=== PATIENT | female | born 1960 | race Two or more races ===

== ENCOUNTER 2023-06-02 13:09 | Inpatient (IN) | payer BC, SELFPAY ==
[2023-06-02] VITALS (22 sets, daily range): BP systolic 72–106; BP diastolic 49–84; PULSE 72–100; RESP 14–20; TEMP 36.4–36.6; O2SAT 98–100; BMI 20.7
--- NOTE | 2023-06-02 | ECHO_ITS ---
Patient Info Name: Jenn Ross Age: 62 years : 1960 Gender: Female Ht: 64 in Wt: 115 lbs BSA: 1.53 m2 HR: 93 bpm BP: 106 / 84 mmHg Heart Rhythm: Sinus Rhythm Technical Quality: Fair Exam Date: 06/02/2023 3:28 PM Exam Location: Echo Lab Patient Status: Inpatient Admit Date: 06/02/2023 Staff Ordering Physician: Chava Saab MD (cherelle/jeromy) Farm Reporter: Jenny Chahal RDCS Attending Provider: Chava Saab MD (cherelle/jeromy) Referring Physician: Kaiser LUNA; Exam Type: CA echo dop color flow w con Study Info Indications - STEMI Complete two-dimensional, color flow and Doppler transthoracic echocardiogram is performed with contrast to opacify the left ventricle and to improve the deliniation of the left ventricle endocardial borders. Contrast/Agitated Saline Contrast/Ag. Saline: Definity Amount: 2.00 ml Administered By: Jenny Chahal RDCS Existing IV Access: Yes IV Access Condition: patent with no signs of infiltration Summary 1. Left ventricular chamber dimension is normal. 2. There is mildly increased left ventricular wall thickness. 3. Left ventricular systolic function is normal, estimated at 55-60%. 4. The mid and basal inferolateral and inferior gardner are hypokinetic. 5. The left ventricular diastolic function is grade I diastolic dysfunction. 6. Right ventricular systolic function is normal. 7. There is trace mitral valve regurgitation. 8. There is trace tricuspid valve regurgitation. Left Ventricle The mid and basal inferolateral and inferior gardner are hypokinetic. Left ventricular chamber dimension is normal. Left ventricular systolic function is normal, estimated at 55-60%. There is mildly increased left ventricular wall thickness. The left ventricular diastolic function is grade I diastolic dysfunction. Right Ventricle Right ventricular chamber dimension is normal. Right ventricular systolic function is normal. Left Atria Left atrial chamber dimension is normal. Right Atria Right atrial chamber dimension is normal. Atrial Septum Intact interatrial septum visualized by color flow imaging. Aortic Valve There is no aortic valve stenosis. There is no aortic valve regurgitation. There is mild aortic valve calcification. Pulmonic Valve The pulmonic valve is not well visualized. Mitral Valve There is trace mitral valve regurgitation. Tricuspid Valve There is trace tricuspid valve regurgitation. Pericardium/Pleural There is no pericardial effusion. Inferior Vena Cava Dilated inferior vena cava with <50% collapse upon inspiration consistent with elevated right atrial pressure, 8 mmHg. Aorta The aortic root size at the sinus of Valsalva is normal. Left Ventricular Outflow Tract Name Value Normal LVOT 2D LVOT Diameter 1.86 cm LVOT Doppler LVOT Peak Gradient 2 mmHg LVOT Mean Gradient 1 mmHg LVOT VTI 13.98 cm LVOT VTI/AV VTI Ratio 1.01 LVOT Stroke Volume 38.00 ml LVOT CO 2.86 l/min LVOT CI
--- NOTE | ~2023-06-02 | XR_ITS ---
EXAMINATION: XR chest 1V portable INDICATION: Pleuritic chest pain, STEMI TECHNIQUE: Portable AP chest at 1017 hours COMPARISON: None available FINDINGS: The lungs are free of acute opacities. No pleural effusion or pneumothorax. The cardiomedia stinal silhouette is normal. IMPRESSION: 1. No acute cardiopulmonary abnormality. Reviewed, dictated and finalized at location F. [facility] OR ZOO DIRECTOR
--- NOTE | 2023-06-02 13:11 | ECG_ITS ---
Measurements Intervals [place] Rate: 94 P: 76 OR: 164 QRS: 22 QRSD: 82 T: 74 QT: 343 QTc: 430 Interpretive Statements SINUS RHYTHM LOW QRS VOLTAGE IN LIMB LEADS ANTEROLATERAL ST ELEVATION MYOCARDIAL INJURY- ACUTE POSTERIOR INFARCT, ACUTE SUBTLE INFERIOR ST ELEVATION MYOCARDIAL INFARCT- ACUTE BASELINE ARTIFACT- II, III, AVF, V6 ABNORMAL ECG NO PREVIOUS ECG AVAILABLE FOR COMPARISON Electronically Signed On 06-02-2023 20:16:11 ORE MINER BLASTING by Abebe Zamudio D.O.
--- NOTE | 2023-06-02 13:20 | ED.CHESTPAIN ---
HPI - Chest Pain General Chief Complaint: Chest Pain Stated Complaint: Chest pain Time Seen by Provider: 06/02/23 13:20 Source: patient Mode of arrival: ambulatory Limitations: no limitations History of Present Illness HPI narrative: 62 years old white female came to the emergency room with retrosternal chest pain associated with shortness of breath started last night, has been steady since. 04/20, currently 11/18. Patient did not take any medication at home prior to arrival. History of hypertension, hyperlipidemia, and smoking. Related Data Home Medications Medication Instructions Recorded Confirmed empagliflozin 25 mg tablet 25 mg PO QAM 07/28/19 06/02/23 (Jardiance) semaglutide 1 mg/dose (2 mg/1.5 1 mg subcut WEEKLY 07/28/19 06/02/23 mL) subcutaneous pen injector (Ozempic) sertraline 100 mg tablet (Zoloft) 200 mg PO DAILY 07/28/19 06/02/23 clotrimazole-betamethasone 1 1 applic topical DAILY 06/02/23 06/02/23 %-0.05 % topical cream gabapentin 100 mg capsule 100 mg PO TID 06/02/23 06/02/23 omeprazole 40 mg capsule,delayed 40 mg PO DAILY 06/02/23 06/02/23 release Allergies Allergy/AdvReac Type Severity Reaction Status Date / Time ceftriaxone Allergy Unknown Itching Verified 06/02/23 16:00 clarithromycin Allergy Unknown Itching Verified 06/02/23 16:00 Review of Systems Review of Systems: All systems reviewed & are unremarkable except as noted in HPI and below PMFSH Past Medical History Medical History Breast cancer Lumpectomy x3. Treated with XRT and Tamoxifen x 5 yrs Diabetes mellitus Diabetic neuropathy GERD (gastroesophageal reflux disease) Mixed hyperlipidemia Osteoarthritis Recurrent major depression resistant to treatment Surgical History Surgical History H/O thumb surgery S/P breast lumpectomy S/P cholecystectomy Family History Family History Mother Family history of thyroid disease COPD (chronic obstructive pulmonary disease) Oxygen dependent Atrial fibrillation Grandparent Family history of malignant neoplasm of breast Hypertension Colon cancer Father Family history of diabetes mellitus in first degree relative CHF (congestive heart failure) Other Family history of malignant neoplasm of ovary Family history of malignant neoplasm of brain Sibling Diabetes mellitus Hypothyroid Social History Social History Social History: Smokes half pack per day Smoking packs per day: 0.5 Smoking cigarettes per day: 10.0 Years smoked: 50 Smoking pack-years: 25.00 Smoking status: Current every day smoker Tobacco type: cigarettes and e-cigarettes/vaping Second hand tobacco smoke exposure: Yes (Childhood exposure/ smoking in home.) Additional smoking assessment comments: Patient states she started smoking at age 12. Alcohol intake: never Substance use: never Substance use type: does not use Lack of Transportation: No Lack of Food: Never True Current Housing: I Have Housing Concerned About Future Housing: No Difficulty Paying Gas/Electric Bills: No Difficulty Paying for Meds: No Currently Unemployed: No Education: Master's Degree or Higher Difficulty w/ Childcare or Family Care: No Spiritual care concerns: No Exam Narrative: General appearance: Well-developed, well-nourished Skin: Normal color Head: Normocephalic, nontraumatic Eyes: Clear conjunctiva ENT: Oropharynx normal, ears normal, nose normal Neck: Supple, nontender Chest and respiratory: Airway patent, no respiratory distress, no accessory muscle use Heart: Regular rate/rhythm Abdomen: Soft, nontender, no organomegaly, quiet bowel sounds Vascular: Normal peripheral pulses, normal capillary refill. Musculoskeletal: Normal range of motion, nontender b
[2023-06-02] MEDS: ASPIRIN 81 MG CHEWABLE TABLET 324 MG PO (13:30)
[2023-06-02] MEDS: TICAGRELOR 90 MG TABLET 180 MG PO (13:30)
--- NOTE | 2023-06-02 13:30 | PC.NURSE ---
SUZANNA from Dr. Saab at bedside for 180mg brilinta and 324mg asa to be given.
[2023-06-02 13:35] LABS: Basophils Absolute Auto 0.1 K/mm3 (0.0-0.1); Basophils Percent Auto 0.5 % (0.2-1.2); Eosinophils Absolute Auto 0.2 K/mm3 (0-0.3); Eosinophils Percent Auto 1.4 % (0-4.4); Hematocrit 43.7 % (37.0-47.0); Immature Granulocyte Absolute 0.05 K/mm3 (0.00-0.031); Immature Granulocyte Percent A 0.5 % (0-0.5); Lymphocytes Absolute Auto 1.72 K/mm3 (0.9-3.2); Lymphocytes Percent Auto 15.7 % (18.3-44.2); Mean Corpuscular Hemoglobin 28.6 pg (26-34); Mean Corpuscular Volume 89.4 fl (80-100); Mean Platelet Volume 9.2 fl (7.4-10.4); Monocytes Absolute Auto 0.6 K/mm3 (0.1-0.6); Monocytes Percent Auto 5.9 % (2.6-8.5); Neutrophils Absolute Auto 8.3 K/mm3 (1.3-6.7); Platelet Count Result 269 k/mm3 (150-375); Red Blood Count 4.89 M/mm3 (4.2-5.4); Red Cell Distribution Width 12.6 % (11.5-14.5); White Blood Count 10.9 K/mm3 (4.5-10.0)
[2023-06-02 13:45] LABS: INR 0.9; Prothrombin Time 12.8 Seconds (11.1-14.7)
[2023-06-02 13:46] LABS: Partial Thromboplastin Time 22.1 SECONDS (22.3-36.8)
[2023-06-02 13:53] LABS: Alanine Aminotransferase 45 U/L (6-35); Albumin Level 4.7 g/dL (3.5-5.1); Alkaline Phosphatase 215 U/L (38-126); Anion Gap 12 mmol/L (8-16); Aspartate Amino Transferase 222 U/L (14-36); Bilirubin,Total 0.9 mg/dL (0.2-1.3); Blood Urea Nitrogen 14 mg/dL (7-17); Calcium 9.9 mg/dL (8.4-10.2); Carbon Dioxide 27 mmol/L (22-30); Chloride 96 mmol/L (98-107); Estimated CRCL calculation 60 ml/min; Estimated Glomerular Filt Rate > 60; Glucose 363 mg/dL (65-110); Lipase 217 U/L (23-300); Potassium 4.4 mmol/L (3.4-5.0); Sodium 135 mmol/L (137-145)
[2023-06-02 14:00] LABS: Cholesterol 187 mg/dL (0-200); HDL Direct 47 mg/dL; Triglycerides 141 mg/dL (<150)
[2023-06-02 14:12] LABS: LDL Cholesterol Direct 105 mg/dL
--- NOTE | 2023-06-02 14:34 | ECG_ITS ---
Measurements Intervals [place] Rate: 76 P: 90 UT: 177 QRS: 4 QRSD: 78 T: 60 QT: 374 QTc: 422 Interpretive Statements SINUS RHYTHM POSSIBLE LEFT ATRIAL ENLARGEMENT LOW QRS VOLTAGE IN DIFFUSE LEADS ANTEROLATERAL ST ELEVATION MYOCARDIAL INJURY- ACUTE SUBTLE INFERIOR ST ELEVATION MYOCARDIAL INFARCT- ACUTE ABNORMAL ECG COMPARED TO ECG 06/02/2023 13:22:07 NO SIGNIFICANT CHANGES Electronically Signed On 06-02-2023 20:17:34 TELETYPE INSTALLER by Abebe Zamudio D.O.
[2023-06-02 14:36] LABS: Hemoglobin A1C 12.1 % (<5.7)
--- NOTE | 2023-06-02 14:42 | PM.IMHP ---
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 Eventually eased up but then had recurrence around 8AM. EKG in the ER showed inferolateral ST elevations, depressions in the anterior leads concerning for inferolateral STEMI with possible posterior extension. Patient referred for emergent cardiac catheterization. Review of Systems Review of Systems: + Chest pain PMFSH Past Medical History Medical History Diabetes type 2, controlled Mixed hyperlipidemia Recurrent major depression resistant to treatment Family History Family History Mother Family history of thyroid disease Grandparent Hypertension Family history of malignant neoplasm of breast Father Family history of diabetes mellitus in first degree relative Other Family history of malignant neoplasm of brain Family history of malignant neoplasm of ovary Social History Social History Smoking status: Never smoker Alcohol intake: never Meds Home Medications and Allergies Home Medications Medication Instructions Recorded Confirmed Type aripiprazole 5 mg tablet (Abilify) 5 mg PO DAILY 07/28/19 History atorvastatin 40 mg tablet 40 mg PO DAILY 07/28/19 History empagliflozin 25 mg tablet 25 mg PO QAM 07/28/19 History (Jardiance) liraglutide 0.6 mg/0.1 mL (18 mg/3 1.2 mg subcut DAILY 07/28/19 History mL) subcutaneous pen injector (Victoza 3-Magdy) metformin 500 mg tablet,extended 1,500 mg PO QPM 07/28/19 History release 24hr semaglutide 1 mg/dose (2 mg/1.5 1 mg subcut WEEKLY 07/28/19 History mL) subcutaneous pen injector (Ozempic) sertraline 100 mg tablet (Zoloft) 200 mg PO DAILY 07/28/19 History tapentadol 100 mg tablet,extended 100 mg PO Q12H #60 tabs 07/28/19 07/28/19 Rx release,12 hr (Nucynta ER) Allergies Allergy/AdvReac Type Severity Reaction Status Date / Time ceftriaxone Allergy Unknown Verified 02/27/20 12:36 clarithromycin Allergy Unknown Verified 02/27/20 12:36 Vital Signs Vital Signs - 24 hr 06/02/23 13:21 Temperature 36.6 C Pulse Rate 93 Respiratory Rate 16 Blood Pressure 106/84 Pulse Oximetry 98 Oxygen Delivery Room Air Exam Const: General: no acute distress HENMT: Mouth: Yes moist mucous membranes Eyes: General: appearance normal, both eyes and all related structures Sclera: sclerae normal Neck: Neck: supple Resp: Effort & Inspection: normal respiratory effort Cardio: Rate: regular rate Rhythm: regular rhythm Skin: General skin exam: normal color Neuro: Speech: normal speech Extrem: General: normal to inspection Psych: Mental Status: mental status grossly normal Affect: normal affect H&P: Results Labs Labs: Short CBC 06/02/23 Range/Units 13:30 WBC 10.9 H (4.5-10.0) K/mm3 Hgb 14.0 (12.0-15.0) g/dL Hct 43.7 (37.0-47.0) % Plt Count 269 (150-375) k/mm3 BMP 06/02/23 13:29 Sodium 135 L Potassium 4.4 Chloride 96 L Carbon Dioxide 27 BUN 14 Creatinine 0.70 Glucose 363 H Calcium 9.9 Cardiac Enzymes 06/02/23 Range/Units 13:29 Troponin I 62.200 H* (0.000-0.034) ng/mL Liver Function 06/02/23 Range/Units 13:29 Total Bilirubin 0.9 (0.2-1.3) mg/dL AST 222 H (14-36) U/L ALT 45 H (6-35) U/L Alkaline Phosphatase 215 H (38-126) U/L Albumin 4.7 (3.5-5.1) g/dL Assessment and Plan Assessment and plan (1) ST elevation (STEMI) myocardial infarction: Qualifiers: Involved coronary artery: unspecified coronary artery Qualified Code(s): I21.3 - ST elevation (STEMI) myocardial infarction of [facility]
--- NOTE | 2023-06-02 14:48 | WPDCNINT ---
Assessment and Plan Assessment and plan (1) ST elevation (STEMI) myocardial infarction: Qualifiers: Involved coronary artery: unspecified coronary artery Qualified Code(s): I21.3 - ST elevation (STEMI) myocardial infarction of unspecified site Code(s): I21.3 - ST elevation (STEMI) myocardial infarction of unspecified site Status: Acute Assessment and Plan: Status post PCI of left circumflex artery with 2 drug-eluting stent placement ICU telemetry monitoring Check echocardiogram Aspirin, Lipitor, Brilinta Will start beta-javi and JOAN-inhibitor as blood pressure allows which is currently low normal (2) Mixed hyperlipidemia: Code(s): E78.2 - Mixed hyperlipidemia Status: Acute Assessment and Plan: Statin (3) Diabetes type 2, controlled: Qualifiers: Diabetes mellitus complication status: without complication Diabetes mellitus usp insulin use: without clinic lpn use Qualified Code(s): E11.9 - Type 2 diabetes mellitus without complications Code(s): E11.9 - Type 2 diabetes mellitus without complications Status: Deleted Assessment and Plan: Her diabetes mellitus is poorly controlled. She admits that she was on insulin infusion earlier but currently not on any other treatment except Jardiance and Ozempic which will be continued I will add sliding scale at this time. She has a family physician and would like to think before deciding on how to further adjust the treatment for diabetes going forward as an outpatient (4) GERD (gastroesophageal reflux disease): Code(s): K21.9 - Gastro-esophageal reflux disease without esophagitis Status: Acute Assessment and Plan: Continue PPI (5) Diabetic neuropathy: Code(s): E11.40 - Type 2 diabetes mellitus with diabetic neuropathy, unspecified Status: Acute Assessment and Plan: Continue Neurontin (6) Tobacco abuse: Code(s): Z72.0 - Tobacco use Status: Acute Assessment and Plan: I have consult encouraged patient to quit smoking. She states she smokes half pack a day as a stress relief. I have explained to her the importance of quitting smoking to decrease further risk of coronary disease and [place] Plan DVT prophylaxis -patient received anticoagulation in the catheterization lab. For Nutrition -diabetic heart healthy diet Code Status - Full Code Total Critical Care Time - 30 minutes Due to a high probability of clinically significant, life threatening deterioration, the patient required my highest level of preparedness to intervene emergently and I personally spent this critical care time directly and personally managing the patient. This critical care time included obtaining a history; examining the patient; pulse oximetry; ordering and review of studies; arranging urgent treatment with development of a management plan; evaluation of patient's response to treatment; frequent reassessment; and discussions with other providers. It was exclusive of separately billable procedures and treating other patients and teaching time. 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 Workup in the ER showed ST segment elevation in inferior and lateral leads and elevated troponin. Patient was diagnosed with STEMI and was taken to cardiac catheterization lab. Patient underwent PCI and drug-eluting stent placementx2 in the circumflex artery. And now is being admitted to ICU for further evaluation management. Patient states that chest pain started last night around 1:00 a.m., was located retrosternally radiation to neck, 10 out 10 severe,
--- NOTE | 2023-06-02 14:55 | WPDMODSED ---
Moderate Sedation Note-Pt Data Patient Data Diagnosis: STEMI Present Complaint: STEMI Procedure to be performed/Plan: Primary PCI Allergies Allergy/AdvReac Type Severity Reaction Status Date / Time ceftriaxone Allergy Unknown Verified 02/27/20 12:36 clarithromycin Allergy Unknown Verified 02/27/20 12:36 Home Medications Medication Instructions Recorded Confirmed Type aripiprazole 5 mg tablet (Abilify) 5 mg PO DAILY 07/28/19 History atorvastatin 40 mg tablet 40 mg PO DAILY 07/28/19 History empagliflozin 25 mg tablet 25 mg PO QAM 07/28/19 History (Jardiance) liraglutide 0.6 mg/0.1 mL (18 mg/3 1.2 mg subcut DAILY 07/28/19 History mL) subcutaneous pen injector (Victoza 3-Magdy) metformin 500 mg tablet,extended 1,500 mg PO QPM 07/28/19 History release 24hr semaglutide 1 mg/dose (2 mg/1.5 1 mg subcut WEEKLY 07/28/19 History mL) subcutaneous pen injector (Ozempic) sertraline 100 mg tablet (Zoloft) 200 mg PO DAILY 07/28/19 History tapentadol 100 mg tablet,extended 100 mg PO Q12H #60 tabs 07/28/19 07/28/19 Rx release,12 hr (Nucynta ER) Current Medications: Active Medications Aspirin (Aspirin 81 Mg Enteric Tablet) 81 mg PO QAM [facility] Atorvastatin Calcium (Atorvastatin 40 Mg Tablet) 40 mg PO DAILY [facility] Heparin Sodium (Porcine) (Heparin Sodium 5,000 Units/Ml Vial) 4,000 units IV PUSH PRN PRN PRN Reason: aPTT less than 55 seconds Heparin Sodium (Porcine) (Heparin Sodium 5,000 Units/Ml Vial) 2,000 units IV PUSH PRN PRN PRN Reason: aPTT 55 - 70 seconds Heparin Sodium/Dextrose (Heparin Sodium/D5w 100 Units/Ml) 25,000 units in 250 mls @ 6 mls/hr IV CONT .Q24H KIRA; Protocol Sodium Chloride (Normal Saline Iv) 1,000 mls @ 125 mls/hr IV CONT .Q8H ONE Stop: 06/02/23 22:33 Perflutren Lipid Microsphere (Perflutren Lipid Microspheres 1.5 Ml Vial Diluted To 10 Ml Total Volume) 0 ml IV PUSH ONCE PRN; Protocol PRN Reason: adequate visualization Stop: 06/05/23 13:37 Ticagrelor (Ticagrelor 90 Mg Tablet) 90 mg PO Q12HR [facility] Sedation/Anesthesia: No previous sedation/anesthesia problems (including family history). [facility] Past Medical History Medical History Diabetes type 2, controlled Mixed hyperlipidemia Recurrent major depression resistant to treatment Family History Family History Mother Family history of thyroid disease Grandparent Hypertension Family history of malignant neoplasm of breast Father Family history of diabetes mellitus in first degree relative Other Family history of malignant neoplasm of brain Family history of malignant neoplasm of ovary Social History Social History Smoking status: Never smoker Alcohol intake: never Mod Sed Physical Exam Physical Exam Pre Procedural Exam: Normal: Appearance, Lungs, Heart Rate, Heart Rhythm, Neuro Exam, Abdomen, Extremities and Skin Hours since solid foods: 0 Hours since liquid intake: 0 Mallampati Classification: class II Internal Medicine - PN: Obj Da Vital Signs Vital Signs: Vital Signs - 24 hr 06/02/23 13:21 Temperature 36.6 C Pulse Rate 93 Respiratory Rate 16 Blood Pressure 106/84 Pulse Oximetry 98 Oxygen Delivery Room Air Meds/Results Medications: Active Medications Generic Name Dose Route Start Last Admin Trade Name Freq PRN Reason Stop Dose Admin Aspirin 81 mg 06/03/23 09:00 Aspirin 81 Mg Enteric Tablet PO QAM [facility] Atorvastatin Calcium 40 mg 06/03/23 09:00 Atorvastatin 40 Mg Tablet PO DAILY [facility] Heparin Sodium (Porcine) 4,000 units 06/02/23 13:25 Heparin Sodium 5,000 Units/Ml Vial IV PUSH PRN PRN aPTT less than 55 seconds Heparin Sodium (Porcine) 2,000 units 06/02/23 13:25 Heparin Sodium 5,000 Units/Ml Vial IV PUSH PRN PRN aPTT 55 - 70 seconds Heparin Sodium/Dextrose 25,000 un
--- NOTE | 2023-06-02 14:56 | WPDCARDPROC ---
Cardiac Cath Procedure Note Date of procedure:: 06/02/23 Performing physician:: CATHETERIZATION LABORATORY REPORT Procedure Date: 06/02/2023 Bar Porter: Chava Saab M.D., [facility]? Referring Physician: Dr. Salmeron ([facility]) ? Anesthesia: Versed and Fentanyl were ordered and given in my presence at 13:46, procedure ended at 14:30. Supervision of nurse monitored moderate sedation with Versed and Fentanyl was provided for 44 minutes. Total of Versed 1mg and Fentanyl 25mcg were administered by the [employer] RN Cristopher Simpson. Pre-op Diagnosis: STEMI Post-op Diagnosis: 1. Acute 100% occlusion of proximal LCX s/p successful PCI with placement of JACOBY x 2 in an overlapping fashion in the proximal-mid LCX (extending into OM vessel). 2. Mild disease of LAD and RCA. Diagonal branch disease that is best suited for medical management due to small caliber size. 3. Left ventricular end-diastolic pressure of 13mmHg Procedure(s): 1. Moderate sedation 2. Ultrasound-guided access of the right common femoral artery 3. Coronary angiography 4. Left heart cath 5. PCI of LCX with JACOBY x 2 6. IVUS of LCX 7. Angioseal closure of the right common femoral artery Access Site: Right common femoral artery Brief History and Clinical Indications: Patient is a 62 year old female who is referred for emergent cardiac cath for STEMI. All risks, benefits and alternatives to left heart catheterization with or without percutaneous coronary intervention was discussed at length with the patient. Risk of complications including but not limited to bleeding, infection, arrhythmia, stroke, worsening kidney function, blood loss, groin hematoma, limb loss, emergency coronary artery bypass grafting, and even were discussed with the patient and all questions were answered. The patient understood and wished to proceed. Time out called, patient name, date of , medical record number, allergies, procedure performed, identify Bar Porter, patient and staff member concurred with accurate data, procedure carried on. Findings: LEFT HEART CATHETERIZATION FINDINGS: 1. Left main: The left main coronary artery is widely patent without any significant obstructive disease. 2. Left anterior descending: The LAD has mild diffuse disease without any significant obstructive angiographic disease. The first diagonal branch is a small caliber vessel that has obstructive disease in its proximal portion. 3. Left circumflex: The left circumflex artery is 100% occluded in its proximal portion. 4. Right coronary artery: The RCA is a co-dominant vessel. There is mild disease in the mid portion. No obstructive disease. 5. Left ventricle: A. End-diastolic pressure 13mmHg. B. LV gram deferred. C. No significant gradient across aortic valve on catheter pullback. Description of Procedure and PCI: Informed consent signed and placed in the chart. Patient transferred to laborer pipelines room. Prepped and draped in usual sterile fashion. 2% lidocaine in right groin area. Micropuncture needle used to access right common femoral artery under ultrasound guidance. J wire advanced, micropuncture cannula placed. Right iliofemoral angiogram performed, access confirmed and micropuncture cannula exchanged for 6-FR sheath. 5F FL 4 diagnostic catheter engaged Left Main Coronary Artery. Multiple orthogonal angiogram obtained and reviewed. Angiomax was used for anticoagulation. 6F CLS 3.0 guide catheter was used to intubate the left main. 0.014 [place] coronary wire was passed in to the distal OM vessel. The lesion was pre-dilated with a 2.5mm x 15mm balloon inflated to high HELENE. Multiple balloon inflations done. After balloon angioplasty, flow was restored in the LCX/OM, however, it appeared that there was a non-flow limiting dissection in the OM. IVUS catheter advanced in the OM. Reference measurements obtained. Dissection noted in the OM, the wire appeared to be in the true lumen. A 3.0mm x
--- NOTE | 2023-06-02 15:00 | ADMGEN ---
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 Patient/family oriented to hospital policies and general routines including ID bracelet, bed and alarms, visiting hours, pain management, procedures, bathroom and other care routines, personal items, smoking policy, room service/diet, and visiting hours. Information on how to activate the Rapid Response Team has been discussed. Patient/Family are encouraged to report perceived risks to care and to ask questions if they do not understand what they are told or what they should do.
--- NOTE | 2023-06-02 15:09 | PC.NURSE ---
Cardiopulmonary Rehab Services flyer was given to patient.
[2023-06-02] MEDS: SODIUM CHLORIDE 0.9% IV 1,000 ML 125 ML IV CONT (15:32)
[2023-06-02] MEDS: PERFLUTREN LIPID MICROSPHERES 1.5 ML VIAL DILUTED TO 10 ML TOTAL VOLUME IV PUSH (16:00)
--- NOTE | 2023-06-02 16:20 | IVDEFINITY ---
Prior to administration of IV Definity the patient was educated on the risks and benefits of the imaging enhancing agent including potential adverse side effects. The patient verbalized understanding. Allergies were verified. No exclusion criteria were identified and at least one of the following inclusion criteria were met: 1) physician request, 2) patient technically difficult to image (per the [place] [employer] guidelines of two or more segments not discernable within the apical view), or 3) questionable left ventricular function. ?
[2023-06-02 16:26] LABS: Glucose Point of Care 269 mg/dl (65-105)
[2023-06-02 17:08] LABS: Troponin I > 80.000 ng/mL (0.000-0.034)
[2023-06-02] MEDS: GABAPENTIN 100 MG CAPSULE PO (17:19)
[2023-06-02] MEDS: INSULIN ASPART (*BKC) 100 UNITS/ML SUB-Q ×2 (17:19→20:18)
[2023-06-02] MEDS: TICAGRELOR 90 MG TABLET PO (20:06)
[2023-06-02 20:25] LABS: Glucose Point of Care 250 mg/dl (65-105)
[2023-06-02 20:42] LABS: Troponin I > 80.000 ng/mL (0.000-0.034)
[2023-06-02] MEDS: PANTOPRAZOLE 40 MG TABLET PO (22:37)
[2023-06-02] MEDS: KETOROLAC 15 MG/ML VIAL (*BKC) IV PUSH (22:37)
[2023-06-02] MEDS: LACTATED RINGERS 1,000 ML 500 ML IV CONT (23:41)
[2023-06-03] VITALS (21 sets, daily range): BP systolic 72–91; BP diastolic 44–60; PULSE 80–104; RESP 12–22; TEMP 37–38.2; O2SAT 92–100
[2023-06-03] MEDS: LACTATED RINGERS 1,000 ML 500 ML IV CONT (02:29)
[2023-06-03] MEDS: MIDODRINE HCL 2.5 MG TABLET 15 MG PO (03:18)
[2023-06-03] MEDS: ONDANSETRON INJ 4 MG/2 ML VIAL IV PUSH (03:23)
[2023-06-03 04:38] LABS: Basophils Percent Auto 0.3 % (0.2-1.2); Eosinophils Percent Auto 0.3 % (0-4.4); Hematocrit 34.6 % (37.0-47.0); Hemoglobin 10.9 g/dL (12.0-15.0); Immature Granulocyte Absolute 0.06 K/mm3 (0.00-0.031); Immature Granulocyte Percent A 0.6 % (0-0.5); Lymphocytes Absolute Auto 0.99 K/mm3 (0.9-3.2); Lymphocytes Percent Auto 9.3 % (18.3-44.2); Mean Corpuscular HGB Conc 31.5 g/dl (32-36); Mean Corpuscular Hemoglobin 28.6 pg (26-34); Mean Corpuscular Volume 90.8 fl (80-100); Mean Platelet Volume 9.3 fl (7.4-10.4); Monocytes Absolute Auto 0.8 K/mm3 (0.1-0.6); Monocytes Percent Auto 7.9 % (2.6-8.5); Neutrophils Absolute Auto 8.7 K/mm3 (1.3-6.7); Neutrophils Percent Auto 81.6 % (45.5-73.1); Platelet Count Result 203 k/mm3 (150-375); Red Blood Count 3.81 M/mm3 (4.2-5.4); Red Cell Distribution Width 12.6 % (11.5-14.5); White Blood Count 10.7 K/mm3 (4.5-10.0)
--- NOTE | 2023-06-03 04:44 | PC.NURSE ---
The patient has had persistent low BPs through the night despite repositioning both the patient and her cuff (see vitals). Providers have been updated on her condition at least 4 times through the evening with new orders arising from a few of those contacts. (See orders) 2 Boluses and midodrine given, patient mostly asymptomatic through the night but became nauseated this a.m. Providers contacted were Dr. Mcneil [address] Irizarry at least twice. Cath site looks good with no hematoma, no sign of bleeding, and no pain. Distals pulses are palpable bilaterally. Patient denies pain or discomfort aside from nausea this a.m. and some mild epigastric discomfort last night. Both instances were resolved with orders given by Dr. Mcneil.
[2023-06-03 04:50] LABS: Alanine Aminotransferase 41 U/L (6-35); Albumin Level 3.4 g/dL (3.5-5.1); Alkaline Phosphatase 138 U/L (38-126); Anion Gap 13 mmol/L (8-16); Aspartate Amino Transferase 165 U/L (14-36); Blood Urea Nitrogen 17 mg/dL (7-17); Calcium 8.6 mg/dL (8.4-10.2); Carbon Dioxide 18 mmol/L (22-30); Chloride 101 mmol/L (98-107); Estimated CRCL calculation 72 ml/min; Estimated Glomerular Filt Rate > 60; Glucose 251 mg/dL (65-110); Magnesium 2.3 mg/dL (1.6-2.3); Potassium 4.3 mmol/L (3.4-5.0); Sodium 132 mmol/L (137-145)
[2023-06-03 08:17] LABS: Glucose Point of Care 249 mg/dl (65-105)
[2023-06-03] MEDS: EMPAGLIFLOZIN 25 MG TABLET PO (08:17)
[2023-06-03] MEDS: ASPIRIN 81 MG ENTERIC TABLET PO (08:17)
[2023-06-03] MEDS: PANTOPRAZOLE 40 MG TABLET PO (08:17)
[2023-06-03] MEDS: TICAGRELOR 90 MG TABLET PO ×2 (08:17→21:09)
[2023-06-03] MEDS: GABAPENTIN 100 MG CAPSULE PO ×3 (08:17→17:32)
[2023-06-03] MEDS: ATORVASTATIN 40 MG TABLET 80 MG PO (08:17)
[2023-06-03] MEDS: INSULIN ASPART (*BKC) 100 UNITS/ML SUB-Q ×4 (08:18→21:13)
[2023-06-03] MEDS: INSULIN GLARGINE (*BKC) 100 UNITS/ML 15 UNITS SUB-Q (09:07)
[2023-06-03 09:27] LABS: Procalcitonin 0.1 ng/mL
--- NOTE | 2023-06-03 09:43 | PM.PNCARD ---
Progress Note: A&P Assessment and Plan (1) ST elevation (STEMI) myocardial infarction: Qualifiers: Involved coronary artery: unspecified coronary artery Qualified Code(s): I21.3 - ST elevation (STEMI) myocardial infarction of unspecified site Code(s): I21.3 - ST elevation (STEMI) myocardial infarction of unspecified site Status: Acute Assessment and Plan: Late presentation STEMI -- Presented 12 hours after symptom onset. Emergent cardiac catheterization showed acute 100% occlusion of proximal LCX. Mild disease in the LAD and RCA. Successful PCI done with placement of JACOBY x 2 in the proximal-mid LCX (extending into OM vessel). Admitted to ICU. Will transfer out of ICU and to IMU today. Loaded with ASA 324mg x 1 in the ED. Continue ASA 81mg once daily indefinitely. Loaded with Brilinta 180mg x 1 in the ED. Continue with Brilinta 90mg BID for at least 1 year. High-intensity statin. Echocardiogram with preserved LVEF, no significant valvular abnormalities. Referral to cardiac rehab placed. (2) Uncontrolled diabetes mellitus: Status: Acute Assessment and Plan: A1c is 12.1! Started on Lantus. Will consult Hospitalist for management of diabetes. (3) Tobacco abuse: Code(s): Z72.0 - Tobacco use Status: Acute Assessment and Plan: Discussed smoking cessation, adverse effects on heart health. Offered nicotine patch, but patient does not wish for that at this time. She will work on stopping smoking. (4) GERD (gastroesophageal reflux disease): Code(s): K21.9 - Gastro-esophageal reflux disease without esophagitis Status: Acute Assessment and Plan: Protonix (5) Mixed hyperlipidemia: Code(s): E78.2 - Mixed hyperlipidemia Status: Acute Assessment and Plan: High intensity statin (6) Hypotension: Code(s): I95.9 - Hypotension, unspecified Status: Acute Assessment and Plan: Overnight, patient had SBP into the 70s. Overall relatively asymptomatic with it, had some nausea. Was given dose of Midodrine. Patient states that her systolics at home normally run in the 90s. She is feeling well this morning without any symptoms. Echocardiogram with preserved LVEF, no significant valvular abnormalities. No bleeding from access site noted. No signs of infection. As patient is asymptomatic from it, this may be around her baseline. Will closely monitor for now. Plan Recommendations/Plan discussed with Assistant Press Operator, Dr. Irizarry. 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 Eventually eased up but then had recurrence around 8AM. EKG in the ER showed inferolateral ST elevations, depressions in the anterior leads concerning for inferolateral STEMI with possible posterior extension. Patient referred for emergent cardiac catheterization. Date of service 06/03: Overnight, patient had SBP into the 70s. Overall relatively asymptomatic with it, had some nausea. Had some pleuritic chest pain as well for which she was given Toradol. Given PPI and Tums for heartburn. Patient feels well this morning. Denies any pain, nausea. Otherwise doing well. Review of Systems Review of Systems: All systems reviewed & are unremarkable except as noted in HPI and below (HPI) Exam Const: General: comfortable and no acute distress HENMT: Mouth: Yes moist mucous membranes Eyes: General: appearance normal, both eyes and all related structures Sclera: sclerae normal Neck: Neck: supple Resp: Effort & Inspection: normal respiratory effort Auscultation: clear to auscultation bilaterally Cardio: Rate: regular rate Rhythm: regular rhythm Heart sounds: no murmurs Skin: General skin exam: normal color Neuro: Speech: normal speech Psych: Me
--- NOTE | 2023-06-03 10:11 | WPDINTPN ---
Progress Note: A&P Assessment and Plan (1) ST elevation (STEMI) myocardial infarction: Qualifiers: Involved coronary artery: unspecified coronary artery Qualified Code(s): I21.3 - ST elevation (STEMI) myocardial infarction of unspecified site Code(s): I21.3 - ST elevation (STEMI) myocardial infarction of unspecified site Status: Acute Assessment and Plan: Status post PCI of left circumflex artery with 2 drug-eluting stent placement ICU telemetry monitoring Aspirin, Lipitor, Brilinta Will start beta-javi and JOAN-inhibitor as blood pressure allows which is currently low normal Echo summary ? 1. Left ventricular chamber dimension is normal. ? 2. There is mildly increased left ventricular wall thickness. ? 3. Left ventricular systolic function is normal, estimated at 55-60%. ? 4. The mid and basal inferolateral and inferior gardner are hypokinetic. ? 5. The left ventricular diastolic function is grade I diastolic dysfunction. ? 6. Right ventricular systolic function is normal. ? 7. There is trace mitral valve regurgitation. ? 8. There is trace tricuspid valve regurgitation. (2) Mixed hyperlipidemia: Code(s): E78.2 - Mixed hyperlipidemia Status: Acute Assessment and Plan: Statin (3) Diabetes type 2, controlled: Qualifiers: Diabetes mellitus quality assurance assessor insulin use: without quality assurance assessor use Diabetes mellitus complication status: without complication Qualified Code(s): E11.9 - Type 2 diabetes mellitus without complications Code(s): E11.9 - Type 2 diabetes mellitus without complications Status: Deleted Assessment and Plan: Her diabetes mellitus is poorly controlled. She admits that she was on insulin infusion earlier but currently not on any other treatment except Jardiance and Ozempic which will be continued Continue sliding scale at this time. I will Lantus while she is in the hospital. 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 She states she smokes half pack a day as a stress relief. I have explained to her the importance of quitting smoking to decrease further risk of coronary disease and [place] (7) Hypotension: Code(s): I95.9 - Hypotension, unspecified Status: Acute Assessment and Plan: Patient had low blood pressure overnight. She states at baseline during the day her systolic blood pressures in 90s. While sleeping her blood pressure was in 70s. Given fluid bolus with some improvement. Patient appears to be asymptomatic Workup to rule out occult infection as below Mild to drain was added by Cardiology Blood pressure improved this morning. Will plan on increasing activity today (8) SIRS (systemic inflammatory response syndrome): Code(s): R65.10 - Systemic inflammatory response syndrome (SIRS) of non-infectious origin without acute organ dysfunction Status: Acute Assessment and Plan: Patient has slightly elevated WBC and low-grade fever overnight could be secondary to [place]. She denies any respiratory symptoms and is on room air Will check UA and procalcitonin level as patient had low blood pressure overnight again could be her normal baseline Left big toe does not appear infected Plan DVT prophylaxis -patient received anticoagulation in the catheterization lab. Now ambulating Nutrition -diabetic
[2023-06-03 12:04] LABS: Appearance Urine Clear (Clear); Bilirubin Urine Negative (Negative); Blood Urine Negative (Negative); Color Urine Yellow (Yellow); Glucose Urine UA 3+ mg/dL (Negative); Ketones Urine 3+ mg/dL (Negative); Leukocyte Esterase Ur Negative LEU/UL (Negative); Nitrate Urine Negative (Negative); Protein Urine Negative (Negative); pH Urine 5.5 (5.0-9.0)
[2023-06-03 12:04] LABS: Glucose Point of Care 220 mg/dl (65-105)
[2023-06-03 12:15] LABS: Specific Grav Ur 1.041 (1.001-1.035)
[2023-06-03 12:17] LABS: Add Urine Microscopic? NO
--- NOTE | 2023-06-03 12:20 | PM.IMCN ---
Assessment and Plan Assessment and plan (1) Uncontrolled diabetes mellitus: Status: Acute Assessment and Plan: A1c 12.1. Her diabetes mellitus is poorly controlled related to noncompliance. She has been compliant with Jardiance and Ozempic which has been continued. lantus was added by the submersible pilot. Patient is agreeable to resume insulin so will continue Lantus but change to night time dosing. Continue AccuCheks covering with sliding scale. Hypoglycemia protocol available as needed. Continue to adjust medications to control glucose (2) Hypotension: Code(s): I95.9 - Hypotension, unspecified Status: Acute Assessment and Plan: Patient had low blood pressure since admission with SBP 70-90 range. She states at baseline during the day her systolic blood pressures in 90s. While sleeping her blood pressure was in 70s. She was given fluid bolus with some improvement. Patient appears to be asymptomatic Midodrine added. Check TSH, cortisol. (3) ST elevation (STEMI) myocardial infarction: Qualifiers: Involved coronary artery: unspecified coronary artery Qualified Code(s): I21.3 - ST elevation (STEMI) myocardial infarction of unspecified site Code(s): I21.3 - ST elevation (STEMI) myocardial infarction of unspecified site Status: Acute Assessment and Plan: Status post PCI of left circumflex artery with 2 drug-eluting stent placement Echo showing EF 55-60% with hypokinetic mid and basal inferolateral and inferior wall and Grade I diastolic dysfunction. Continue medical management with Aspirin, Lipitor, Brilinta No beta-javi and JOAN-inhibitor as blood pressure to low No smoking was stressed. Control risk factors (4) Mixed hyperlipidemia: Code(s): E78.2 - Mixed hyperlipidemia Status: Acute Assessment and Plan: AST 222 and now 165. ALT better as well. Hepatic congestion? Statin increased. Monitor liver enzymes to ensure they continue to improve. Check hepatitis panel (5) Diabetic neuropathy: Code(s): E11.40 - Type 2 diabetes mellitus with diabetic neuropathy, unspecified Status: Acute Assessment and Plan: Stable. She was educated about the benefits of periodic foot exams at home. Continue Neurontin (6) Tobacco abuse: Code(s): Z72.0 - Tobacco use Status: Acute Assessment and Plan: Explained in detail the benefits of smoking cessation. (7) SIRS (systemic inflammatory response syndrome): Code(s): R65.10 - Systemic inflammatory response syndrome (SIRS) of non-infectious origin without acute organ dysfunction Status: Acute Assessment and Plan: Patient has slightly elevated WBC and low-grade fever felt secondary to [place]. She denies any respiratory symptoms and is on room air. Chest x-ray clear UA shows 3+ glucose and 3+ ketones otherwise negative. Procalcitonin was 0.1. Left big toe does not appear infected. Plan DVT prophylaxis - SCDs Nutrition -diabetic heart healthy diet Code Status - Full Code Incentive spirometry, up in chair HPI Date of Consult Consult date: 06/03/23 Requesting Physician: Chava Saab MD Primary Care Provider: Ozzie Prescott MD Consult Narrative Narrative: Jenn Ross is a 62 year old female with DM and tobacco abuse who presents to the ED on 06/02/23 for chest pain. She was found to have elevated troponin to >[address] elevation in the anterolateral leads, inferior leads and acute posterior infarct. Echo showing EF 55-60% with hypokinetic mid and basal inferolateral and inferior wall and Grade I diastolic dysfunction. She was alate presentation STEMI and was taken to the labor supervisor which showed an acute 100% occluded proximal LCX s/p successful PCI with placement of JACOBY x2 in overlapping fashion. She had mild disease elsewhere. She was admitted to the ICU. She was found to have elevated FSBG and A1c 12.1. Hospitalist s
[2023-06-03] MEDS: MIDODRINE HCL 2.5 MG TABLET 5 MG PO ×2 (12:53→17:32)
[2023-06-03] MEDS: MIDODRINE HCL 10 MG TABLET PO ×2 (12:54→17:32)
[2023-06-03 16:45] LABS: Glucose Point of Care 212 mg/dl (65-105)
--- NOTE | 2023-06-03 20:15 | PC.NURSE ---
1629-Called Dr. Saab about patient's BP, pt asymptomatic, doctor not concerned at this time, will recheck BP in an hour.
[2023-06-03 20:30] LABS: Glucose Point of Care 229 mg/dl (65-105)
[2023-06-03] MEDS: INSULIN GLARGINE (*BKC) 100 UNITS/ML 18 UNITS SUB-Q (21:15)
[2023-06-04] VITALS (7 sets, daily range): BP systolic 77–85; BP diastolic 46–53; PULSE 61–84; RESP 18–20; TEMP 36.6–37.6; O2SAT 94–99
[2023-06-04 04:44] LABS: Basophils Percent Auto 0.2 % (0.2-1.2); Eosinophils Absolute Auto 0.1 K/mm3 (0-0.3); Eosinophils Percent Auto 0.4 % (0-4.4); Hematocrit 31.1 % (37.0-47.0); Hemoglobin 10.1 g/dL (12.0-15.0); Immature Granulocyte Absolute 0.07 K/mm3 (0.00-0.031); Immature Granulocyte Percent A 0.6 % (0-0.5); Lymphocytes Absolute Auto 2.11 K/mm3 (0.9-3.2); Lymphocytes Percent Auto 17.4 % (18.3-44.2); Mean Corpuscular HGB Conc 32.5 g/dl (32-36); Mean Corpuscular Hemoglobin 28.5 pg (26-34); Mean Corpuscular Volume 87.9 fl (80-100); Mean Platelet Volume 9.2 fl (7.4-10.4); Monocytes Percent Auto 8.3 % (2.6-8.5); Neutrophils Absolute Auto 8.9 K/mm3 (1.3-6.7); Neutrophils Percent Auto 73.1 % (45.5-73.1); Platelet Count Result 214 k/mm3 (150-375); Red Blood Count 3.54 M/mm3 (4.2-5.4); Red Cell Distribution Width 12.7 % (11.5-14.5); White Blood Count 12.1 K/mm3 (4.5-10.0)
[2023-06-04 04:59] LABS: Alanine Aminotransferase 45 U/L (6-35); Albumin Level 3.1 g/dL (3.5-5.1); Alkaline Phosphatase 147 U/L (38-126); Anion Gap 8 mmol/L (8-16); Aspartate Amino Transferase 91 U/L (14-36); Blood Urea Nitrogen 24 mg/dL (7-17); Calcium 8.7 mg/dL (8.4-10.2); Carbon Dioxide 22 mmol/L (22-30); Chloride 102 mmol/L (98-107); Estimated CRCL calculation 72 ml/min; Estimated Glomerular Filt Rate > 60; Glucose 140 mg/dL (65-110); Magnesium 2.5 mg/dL (1.6-2.3); Potassium 3.5 mmol/L (3.4-5.0); Sodium 132 mmol/L (137-145)
[2023-06-04 05:37] LABS: Hepatitis B Surface Antigen Negative (Negative)
[2023-06-04 05:42] LABS: HAV RESULT Negative (Negative); Hepatitis B Core IgM Result Negative (Negative)
[2023-06-04 05:54] LABS: Hepatitis C Virus Antibody Negative (Negative)
[2023-06-04 08:35] LABS: Glucose Point of Care 123 mg/dl (65-105)
[2023-06-04] MEDS: PANTOPRAZOLE 40 MG TABLET PO (09:55)
[2023-06-04] MEDS: MIDODRINE HCL 10 MG TABLET PO (09:55)
[2023-06-04] MEDS: MIDODRINE HCL 2.5 MG TABLET 5 MG PO (09:55)
[2023-06-04] MEDS: ASPIRIN 81 MG ENTERIC TABLET PO (09:55)
[2023-06-04] MEDS: EMPAGLIFLOZIN 25 MG TABLET PO (09:55)
[2023-06-04] MEDS: ATORVASTATIN 40 MG TABLET 80 MG PO (09:55)
[2023-06-04] MEDS: TICAGRELOR 90 MG TABLET PO (09:55)
[2023-06-04] MEDS: metFORMIN HCL 250 MG TABLET PO (09:55)
[2023-06-04] MEDS: GABAPENTIN 100 MG CAPSULE PO (09:56)
--- NOTE | 2023-06-04 10:17 | PM.DS ---
DS: Admitting Diagnosis Discharge Date 06/04/2023 Admitting Diagnosis STEMI DS: Discharge Diagnosis Discharge Diagnosis (1) ST elevation (STEMI) myocardial infarction: Qualifiers: Involved coronary artery: unspecified coronary artery Qualified Code(s): I21.3 - ST elevation (STEMI) myocardial infarction of unspecified site Code(s): I21.3 - ST elevation (STEMI) myocardial infarction of unspecified site Status: Acute (2) Uncontrolled diabetes mellitus: Status: Acute (3) Tobacco abuse: Code(s): Z72.0 - Tobacco use Status: Acute (4) Mixed hyperlipidemia: Code(s): E78.2 - Mixed hyperlipidemia Status: Acute DS: Summary Hospital Course Hospital Course: Patient presented with a late presentation STEMI (presented 12 hours after symptom onset). Emergent cardiac catheterization showed acute 100% occlusion of proximal LCX. Mild disease in the LAD and RCA. Successful PCI done with placement of JACOBY x 2 in the proximal-mid LCX (extending into OM vessel). Continue ASA 81mg once daily indefinitely. Continue with Brilinta 90mg BID for at least 1 year. High-intensity statin. Echocardiogram with preserved LVEF, no significant valvular abnormalities. Referral to cardiac rehab placed. Patient has uncontrolled diabetes with an A1c of 12.1. Hospitalist service consulted for management. Patient started on Lantus insulin along with Metformin. Recommended outpatient follow up with Endocrinology for diabetes management. Patient is a current smoker -- recommended smoking cessation. Patient had soft blood pressures during hospitalization. Patient states that her systolics at home normally run in the 90s. Here in the hospital she was noted to have SBP in the 70s when sleeping, high 80s when awake. She was asymptomatic with it. No post cath complications noted. Echocardiogram with preserved LVEF, no significant valvular abnormalities, no pericardial effusion. No bleeding from access site noted. No signs of infection. Hgb stayed stable. TSH level normal. Cortisol level normal. Patient did well with ambulation. As patient is asymptomatic from it, this may be around her baseline. Her blood pressure was closely monitored and patient remained asymptomatic and did well. Instructed patient to closely monitor her blood pressure at home as well and let us know if any issues. Return precautions were discussed with the patient. Patient to follow up with her primary neuropsychologist Dr. Green as an outpatient. Status at Discharge Cognitive/behavioral status at discharge: Stable Functional status at discharge: independent ambulation Overall status at discharge: patient is back to baseline Time Spent with Patient Time attestation: Total time spent providing and/or coordinating discharge services: Exam Const: General: comfortable and no acute distress HENMT: Mouth: Yes moist mucous membranes Eyes: General: appearance normal, both eyes and all related structures Sclera: sclerae normal Neck: Neck: supple Resp: Effort & Inspection: normal respiratory effort Auscultation: clear to auscultation bilaterally Cardio: Rate: regular rate Rhythm: regular rhythm Heart sounds: no murmurs Skin: General skin exam: normal color Psych: Mental Status: mental status grossly normal Affect: normal affect DS: Data Data Completed and Pending Labs on day of discharge: Labs from last 24 hours 06/04/23 06/04/23 06/03/23 07:52 04:36 20:01 WBC 12.1 H RBC 3.54 L Hgb 10.1 L Hct 31.1 L MCV 87.9 MCH 28.5 MCHC 32.5 RDW 12.7 Plt Count 214 MPV 9.2 Immature Gran % (Auto) 0.6 H Neut % (Auto) 73.1 Lymph % (Auto) 17.4 L [place] % (Auto) 8.3 Eos % (Auto) 0.4 Baso % (Auto) 0.2 Lymph # (Auto) 2.11 [place] # (Auto) 1.0 H Eos # (Auto) 0.1 Baso # (Auto) 0.0 Abs Immat Gran (auto) 0.07 H Absolute Neuts (auto) 8.9 H Absolute Nucleated RBC 0.0 Nucleated RBC %
--- NOTE | 2023-06-04 10:37 | PM.IMPN ---
Progress Note: A&P Assessment and Plan (1) Uncontrolled diabetes mellitus: Status: Acute Assessment and Plan: A1c 12.1. Her diabetes mellitus is poorly controlled related to noncompliance. She has been compliant with Jardiance and Ozempic; Jardiance was continued here. Lantus was added by the financial management consultant. Patient is agreeable to resume insulin so this was continued Continue AccuCheks covering with sliding scale. Hypoglycemia protocol available as needed. Add metformin. Home with metformin and lantus. Patient agreeable. She was educated about the benefits of remaining compliant. (2) Hypotension: Code(s): I95.9 - Hypotension, unspecified Status: Acute Assessment and Plan: Patient had low blood pressure since admission with SBP 70-90 range. She was given fluid bolus with some improvement. Patient appears to be asymptomatic and states her SBP 80-90 chronically. TSH normal. Cortisol slightly elevated. Midodrine added. BP in the right calf was 113/52 so consider subclavian stenosis Defer to Cardiology for further management. (3) ST elevation (STEMI) myocardial infarction: Qualifiers: Involved coronary artery: unspecified coronary artery Qualified Code(s): I21.3 - ST elevation (STEMI) myocardial infarction of unspecified site Code(s): I21.3 - ST elevation (STEMI) myocardial infarction of unspecified site Status: Acute Assessment and Plan: Status post PCI of left circumflex artery with 2 drug-eluting stent placement Echo showing EF 55-60% with hypokinetic mid and basal inferolateral and inferior wall and Grade I diastolic dysfunction. Continue medical management with Aspirin, Lipitor, Brilinta No beta-javi and JOAN-inhibitor as blood pressure to low No smoking was stressed. Control risk factors (4) Mixed hyperlipidemia: Code(s): E78.2 - Mixed hyperlipidemia Status: Acute Assessment and Plan: AST 222 and now 91. Hepatic congestion? Hepatitis panel negative. Statin increased. Monitor liver enzymes to ensure they continue to improve. (5) Diabetic neuropathy: Code(s): E11.40 - Type 2 diabetes mellitus with diabetic neuropathy, unspecified Status: Acute Assessment and Plan: Stable. She was educated about the benefits of periodic foot exams at home. Continue Neurontin (6) Tobacco abuse: Code(s): Z72.0 - Tobacco use Status: Acute Assessment and Plan: Explained in detail the benefits of smoking cessation. (7) SIRS (systemic inflammatory response syndrome): Code(s): R65.10 - Systemic inflammatory response syndrome (SIRS) of non-infectious origin without acute organ dysfunction Status: Acute Assessment and Plan: Patient has slightly elevated WBC and low-grade fever felt secondary to [place]. She denies any respiratory symptoms and is on room air. Chest x-ray clear UA shows 3+ glucose and 3+ ketones otherwise negative. Procalcitonin was 0.1. Left big toe does not appear infected. Plan DVT prophylaxis - SCDs Nutrition -diabetic heart healthy diet Code Status - Full Code Incentive spirometry, up in chair Subjective Date/time seen: 06/04/23 10:37 Interval history: 62 year old female with DM and tobacco abuse who presents to the ED on 06/02/23 for chest pain. She was found to have elevated troponin to >[address] elevation. She feels well today. no complainits. She has been up walking in the room without lightheadedness. She has chronically low BP Exam Narrative: AF 99.7 85/53 84 20 94% ra Gen - NARD Chest - lungs are clear to auscultation bilaterally. CV - RRR S1/S2. Tele showing no significant dysrhythmias Abd - soft. NT/ND. +BS Ext - no pedal edema Neuro - alert, appropriate. Psych - normal mood and affect. Skin - warm and dry. Objective Data Vital Signs Vital Signs: Vital Signs - 24 hr 06/03/23 10:50 06/03/23 12:00
== END 2023-06-04 12:06 | disposition home or self-care (01) | DRG 322 ==
LOC: ANHED 13:27 → ANHCATHLAB 13:33 → ANHICU 14:59 → ANHIMU 06-03 11:53
PROVIDERS: Internal Medicine; Admitting Provider Internal Medicine; Emergency Provider Emergency Medicine; PCP Family Medicine; Visit Provider Internal Medicine
PROC: 4A023N7 Measurement of Cardiac Sampling and Pressure, Left Heart, Percutaneous Approach (ICD-10-PCS; CPT 93452; principal; 2023-06-02 13:40)
PROC: 027035Z Dilation of Coronary Artery, One Artery with Two Drug-eluting Intraluminal Devices, Percutaneous Approach (ICD-10-PCS; 2023-06-02 13:40)
PROC: 027035Z Dilation of Coronary Artery, One Artery with Two Drug-eluting Intraluminal Devices, Percutaneous Approach (ICD-10-PCS; 2023-06-02 13:40)
PROC: 027035Z Dilation of Coronary Artery, One Artery with Two Drug-eluting Intraluminal Devices, Percutaneous Approach (ICD-10-PCS; 2023-06-02 13:40)
DX: I21.19 ST elevation (STEMI) myocardial infarction involving other coronary artery of inferior wall (principal); R65.10 Systemic inflammatory response syndrome (SIRS) of non-infectious origin without acute organ dysfunction; I25.10 Atherosclerotic heart disease of native coronary artery without angina pectoris; I11.9 Hypertensive heart disease without heart failure; E78.2 Mixed hyperlipidemia; E11.40 Type 2 diabetes mellitus with diabetic neuropathy, unspecified; Z79.84 Long term (current) use of oral hypoglycemic drugs; K21.9 Gastro-esophageal reflux disease without esophagitis; I95.9 Hypotension, unspecified; E11.65 Type 2 diabetes mellitus with hyperglycemia; F17.210 Nicotine dependence, cigarettes, uncomplicated; F32.A Depression, unspecified; Z85.3 Personal history of malignant neoplasm of breast; Z91.199 Patient's noncompliance with other medical treatment and regimen due to unspecified reason; Z79.4 Long term (current) use of insulin
CPT/HCPCS: 36415; 71045; 80053; 80061; 80074; 81003; 82533; 82948; 83036; 83690; 83735; 84145; 84443; 84484; 85025; 85610; 85730; 92978; 93005; 93458; 99291; A9270; C1725; C1753; C1760; C1769; C1874; C1887; C1894; C8929; C9606; G0269; J0583; J1644; J1815; J1885; J2250; J2405; J3010; J7030; J7040; J7120; Q9957

== ENCOUNTER 2023-06-17 13:21 | Inpatient (IN) | payer BC, SELFPAY ==
[2023-06-17] VITALS (14 sets, daily range): BP systolic 83–105; BP diastolic 54–65; PULSE 105–123; RESP 18–38; TEMP 36.6–36.8; O2SAT 85–100; BMI 21.1
--- NOTE | 2023-06-17 | ECHO_ITS ---
Patient Info Name: Jenn Ross Age: 62 years : 1960 Gender: Female Ht: 64 in Wt: 122 lbs BSA: 1.58 m2 HR: 101 bpm BP: 101 / 64 mmHg Technical Quality: Fair Exam Date: 06/17/2023 3:40 PM Exam Location: Echo Lab Exam Room: [facility] Patient Status: Emergency Admit Date: 06/17/2023 Staff Ordering Physician: Kylee Salmeron MD Hotel Server: Cary Lin RDCS Attending Provider: Kylee Salmeron MD Exam Type: CA echo dop color flow w con Study Info Indications - PULM EDEMA Complete two-dimensional, color flow and Doppler transthoracic echocardiogram is performed with contrast to opacify the left ventricle and to improve the deliniation of the left ventricle endocardial borders. Contrast/Agitated Saline Contrast/Ag. Saline: Definity Amount: 2.00 ml Administered By: Cary Lin [facility] Existing IV Access: Yes IV Access Condition: patent with no signs of infiltration Summary 1. Moderate left ventricular enlargement with normal wall thickness. Severe left ventricular dysfunction with severe hypokinesis to akinesis of the mid and distal inferior gardner, and the proximal to mid lateral gardner. Diastolic dysfunction is present. Estimated ejection fraction is 25-30%. Global longitudinal strain was also low at -12%. 2. Left atrial chamber dimension is moderately enlarged. 3. There is moderate mitral valve regurgitation. 4. There is mild to moderate tricuspid valve regurgitation. 5. Moderate pulmonary hypertension, estimated pulmonary arterial systolic pressure is 57 mmHg. 6. Dilated inferior vena cava with <50% collapse upon inspiration consistent with significantly elevated right atrial pressure, 20 mmHg. 7. There is small circumferential pericardial effusion measuring 0.5-1.0 cm in thickness. There is mild invagination of the right atrium during early diastole and occasionally the right ventricle, but the tricuspid valve and mitral valve in flows do not show any significant variation. Therefore I doubt there is any tamponade physiology present. 8. Normal sinus rhythm. 9. Somewhat technically difficult study, IV definity used. 10. No extravasation of IV definity into the pericardium, thus, no suggestion of myocardial perforation or rupture. Left Ventricle Left ventricular chamber dimension is moderately enlarged. Left ventricular systolic function is severely reduced, estimated at 25-30%. There is no increased left ventricular wall thickness. Left ventricular septal wall motion is normal. The left ventricular diastolic function is abnormal. Global longitudinal strain is moderately elevated at -12 %. Right Ventricle Right ventricular chamber dimension is normal. Right ventricular systolic function is normal. Left Atria Left atrial chamber dimension is moderately enlarged. Right Atria Right atrial chamber dimension is normal. Aortic Valve The aortic valve is trileaflet. There is moderate aortic valve sclerosis. There is no aortic valve stenosis. There is no aortic valve regurgitation. Pulmonic Valve The pulmonic valve is normal. There is no pulmonic valve stenosis. There is no pulmonic regurgitation. Mitral Valve The mitral valve has normal leaflets. There is no mitral valve stenosis. There is moderate mitral valve regurgitation. Tricuspid Valve The tricuspid valve leaflets are normal. There is no significant tricuspid valve stenosis. There is mild to moderate tricuspid valve regurgitation. Moderate pulmonary hypertension, estimated pulmonary arterial systolic pressure is 57 mmHg. Pericardium/Pleur
--- NOTE | ~2023-06-17 | XR_ITS ---
XR chest 1V portable 06/17/2023 14:45 Indication: Shortness of breath Procedure: AP portable chest Comparison: 06/03/2023 Findings: Interval development of bilateral airspace disease, compatible with edema versus pneumonia. Moderate right pleural effusion. No pneumothorax. Impression: 1: Interval development of extensive bilateral airspace disease which may represent edema or pneumoni a. 2: Moderate right pleural effusion. Reviewed, dictated and finalized at location L. HARNESS DESIGN ENGINEER Impression: 1: Interval development of extensive bilateral airspace disease which may repre sent edema or pneumonia. 2: Moderate right pleural effusion.
--- NOTE | ~2023-06-17 | CT_ITS ---
EXAMINATION:CT diagnostic chest wo con DATE: 06/17/2023 17:07 INDICATION: Shortness of breath. Cough. TECHNIQUE: Computed tomography (CT) of the chest was performed without intravenous contrast. Automate d exposure control and iterative reconstruction technique were employed. The dose-length product (DLP ) was 224.43 mGy-cm. COMPARISON: Chest single view 06/17/2023 FINDINGS: There are patchy airspace and groundglass opacities and crazy paving throughout the lungs b ilaterally. There are moderate-sized right and small left pleural effusions. Cardiomegaly is noted. T here is a moderate-sized pericardial effusion. There are coronary artery calcifications. There is mil d mediastinal lymphadenopathy, likely reactive. There is moderate thoracic spondylosis. There is mild chronic height loss of multiple vertebral bodies. There is a chronic burst fracture of T12. IMPRESSION: 1. Diffuse lung disease, consistent with pulmonary edema versus pneumonia. 2. Moderate-sized right and small left pleural effusions. 3. Moderate-sized pericardial effusion. Reviewed, dictated and finalized at location E. RAL ARTS DEAN
--- NOTE | ~2023-06-17 | XR_ITS ---
EXAMINATION: XR abdomen gastric tube insert DATE: 06/18/2023 18:53 INDICATION: Orogastric tube placement. TECHNIQUE: A supine view of the abdomen was obtained. COMPARISON: None. FINDINGS: There is gaseous distention of the stomach. The nasogastric tube tip is in the stomach. Jose gical clips in the right upper quadrant are likely from cholecystectomy. There are dilated loops of s mall bowel. The colon is decompressed. IMPRESSION: 1. Nasogastric tube tip in the stomach. 2. Dilated small bowel, consistent with adynamic ileus versus small bowel bowel obstruction. Reviewed, dictated and finalized at location E. NESS ADMINISTRATION INSTRUCTOR
--- NOTE | ~2023-06-17 | XR_ITS ---
XR chest PICC line 06/18/2023 10:43 Indication: Line placement Procedure: AP portable chest Comparison: Comparison to multiple prior studies sequentially, with oldest reviewed study dated 05/13. Findings: Right subclavian PICC line tip in the SVC. Progression of diffuse bilateral airspace diseas e. Small right pleural effusion. No pneumothorax. No acute osseous abnormality. Impression: 1: Progression of diffuse bilateral airspace disease which may represent edema or pneumonia. 2: Small right pleural effusion. Reviewed, dictated and finalized at location B. ER SAMPLE CASE Impression: 1: Progression of diffuse bilateral airspace disease which may represent edema or pneumonia. 2: Small right pleural effusion.
--- NOTE | ~2023-06-17 | XR_ITS ---
EXAMINATION: XR abdomen/kub 1V INDICATION: Ileus versus obstruction TECHNIQUE: Supine views of the abdomen were obtained on 2 radiographs. COMPARISON: 06/18/2023 FINDINGS: The nasogastric tube is in the stomach. Gastric distention has resolved. No definitely dila sal loops of bowel are identified. Surgical clips in the right upper quadrant are likely from prior c holecystectomy. IMPRESSION: 1. No definite dilated loops of bowel identified. Reviewed, dictated and finalized at location F. ES 9 THROUGH 12 TEACHER
--- NOTE | ~2023-06-17 | XR_ITS ---
EXAMINATION: XR chest ET placement DATE: 06/18/2023 18:54 INDICATION: Intubation. TECHNIQUE: A single frontal view of the chest was obtained. COMPARISON: Chest single view at 10:28 AM FINDINGS: There are airspace opacities throughout the lungs bilaterally. There are small pleural effu sions. No pneumothorax. There is enlargement of the cardiac silhouette. There are surgical clips in l eft axilla. The endotracheal tube tip is 2.9 cm above the rox. The nasogastric tube tip is beyond the inferior margin of the radiograph, but at least to the stomach. A right upper extremity periphera lly inserted central venous catheter (PICC) is seen with tip at the superior cavoatrial junction. IMPRESSION: 1. Worsened diffuse lung disease, consistent with pulmonary edema versus pneumonia. 2. Small pleural effusions. 3. Enlargement of the cardiac silhouette, likely a combination of cardiomegaly and pericardial effusi on as seen by CT. Reviewed, dictated and finalized at location E. E ANALYST IMPRESSION: 1. Worsened diffuse lung disease, consistent with pulmonary edema versus pneumo kenya. 2. Small pleural effusions. 3. Enlargement of the cardiac silhouette, likely a combination of cardiomegaly and pericardial effusion as seen by CT.
--- NOTE | ~2023-06-17 | XR_ITS ---
EXAMINATION: XR chest 1V portable INDICATION: Respiratory failure TECHNIQUE: Portable AP chest at 0819 hours COMPARISON: 06/18/2023 FINDINGS: The endotracheal tube ends approximately 2.8 cm above the rox. The nasogastric tube is f ollowed as far as the stomach. Its tip is beyond the inferior margin of the radiograph. A right upper extremity PICC ends with its tip in the midsuperior vena cava. There are diffuse interstitial and ai rspace opacities throughout all lung zones with interval improvement. There is a small left pleural e ffusion. No pneumothorax is identified. The cardiac silhouette remains enlarged. IMPRESSION: 1. Diffuse lung disease with interval improvement, consistent with pneumonia and/or pulmonary edema. 2. Small left pleural effusion. 3. Enlarged cardiac silhouette, consistent with cardiomegaly and pericardial effusion. Reviewed, dictated and finalized at location F. OW MAKER IMPRESSION: 1. Diffuse lung disease with interval improvement, consistent with pneumonia an d/or pulmonary edema. 2. Small left pleural effusion. 3. Enlarged cardiac silhouette, consistent with cardiomegaly and pericardial ef fusion.
--- NOTE | 2023-06-17 13:22 | ECG_ITS ---
Measurements Intervals [place] Rate: 121 P: 59 TX: 131 QRS: -26 QRSD: 80 T: 0 QT: 338 QTc: 481 Interpretive Statements SINUS TACHYCARDIA LOW QRS VOLTAGE [QRS DEFLECTION < 0.5/1.0 mV IN LIMB/CHEST LEADS] POOR R-WAVE PROGRESSION, POSSIBLE OLDE ANTERIOR MYOCARDIAL INFARCTION COMPARED TO ECG 06/02/2023 15:24:47 SINUS TACHYCARDIA NOW PRESENT Electronically Signed On 06-17-2023 19:17:36 ASSOCIATE CREATIVE DIRECTOR by Santa Ortega M.D.
--- NOTE | 2023-06-17 13:50 | ED.SOB ---
HPI - SOB/Dyspnea General Chief Complaint: Shortness of Breath/Dyspnea Stated Complaint: Short of breath Time Seen by Provider: 06/17/23 13:49 Source: patient and family History of Present Illness HPI Narrative: 62 years old white female came to the ED from home by private car complaining of shortness of breath on exertion, gradually getting worse over the last 2 days associated with dry cough. History of STEMI 2 weeks ago, diabetes, hyperlipidemia currently on aspirin and Brilinta. Quit smoking 2 weeks ago She denies any fever, chills, nausea, vomiting, back pain, abdominal pain or chest pain. Related Data Home Medications Medication Instructions Recorded Confirmed empagliflozin 25 mg tablet 25 mg PO QAM 07/28/19 06/17/23 (Jardiance) semaglutide 1 mg/dose (2 mg/1.5 1 mg subcut WEEKLY 07/28/19 06/17/23 mL) subcutaneous pen injector (Ozempic) sertraline 100 mg tablet (Zoloft) 200 mg PO DAILY 07/28/19 06/17/23 clotrimazole-betamethasone 1 1 applic topical DAILY 06/02/23 06/17/23 %-0.05 % topical cream gabapentin 100 mg capsule 100 mg PO TID 06/02/23 06/17/23 omeprazole 40 mg capsule,delayed 40 mg PO DAILY 06/02/23 06/17/23 release Allergies Allergy/AdvReac Type Severity Reaction Status Date / Time ceftriaxone Allergy Unknown Itching Verified 06/17/23 13:51 clarithromycin Allergy Unknown Itching Verified 06/17/23 13:51 Review of Systems Review of Systems: All systems reviewed & are unremarkable except as noted in HPI and below PMFSH Past Medical History Medical History Breast cancer Lumpectomy x3. Treated with XRT and Tamoxifen x 5 yrs Coronary artery disease STEMI 06/02/23 with PCI/JACOBY x2 to the LCX Diabetes mellitus Diabetic neuropathy GERD (gastroesophageal reflux disease) Mixed hyperlipidemia Osteoarthritis Recurrent major depression resistant to treatment Surgical History Surgical History H/O thumb surgery S/P breast lumpectomy S/P cholecystectomy Family History Family History Mother Family history of thyroid disease COPD (chronic obstructive pulmonary disease) Oxygen dependent Atrial fibrillation Grandparent Family history of malignant neoplasm of breast Hypertension Colon cancer Father Family history of diabetes mellitus in first degree relative CHF (congestive heart failure) Other Family history of malignant neoplasm of ovary Family history of malignant neoplasm of brain Sibling Diabetes mellitus Hypothyroid Social History Social History (Updated 06/17/23 @ 18:41 by Hansel Ingram MD) Social History: Patient has quit smoking. She denies drug use. Rare alcohol use. She is a full code. She nominates her son to be the individual would make medical decisions for her if she is unable. Smoking packs per day: 0.5 Smoking cigarettes per day: 10.0 Years smoked: 50 Smoking pack-years: 25.00 Smoking status: Former smoker Second hand tobacco smoke exposure: Yes (Childhood exposure/ smoking in home.) Smoking end date: 06/04/23 Additional smoking assessment comments: Patient states she started smoking at age 12. Alcohol intake: never Substance use: never Substance use type: does not use Lack of Transportation: No Lack of Food: Never True Current Housing: I Have Housing Concerned About Future Housing: No Difficulty Paying Gas/Electric Bills: No Difficulty Paying for Meds: No Currently Unemployed: No Education: Master's Degree or Higher Difficulty w/ Childcare or Family Care: No Spiritual care concerns: No Exam Narrative: General appearance: Well-developed, well-nourished , tachypneic Skin: Normal color, 1+ edema lower extremity bilaterally Head: Normocephalic, nontraumatic Eyes: Clear conjunctiva ENT: Oropharynx normal, ears normal, nose normal Ne
[2023-06-17 14:35] LABS: Basophils Percent Auto 0.2 % (0.2-1.2); Eosinophils Percent Auto 0.1 % (0-4.4); Hematocrit 35.9 % (37.0-47.0); Hemoglobin 10.4 g/dL (12.0-15.0); Immature Granulocyte Absolute 0.16 K/mm3 (0.00-0.031); Immature Granulocyte Percent A 0.9 % (0-0.5); Lymphocytes Absolute Auto 1.26 K/mm3 (0.9-3.2); Lymphocytes Percent Auto 7.2 % (18.3-44.2); Mean Corpuscular Hemoglobin 27.1 pg (26-34); Mean Corpuscular Volume 93.5 fl (80-100); Mean Platelet Volume 9.1 fl (7.4-10.4); Monocytes Absolute Auto 0.7 K/mm3 (0.1-0.6); Monocytes Percent Auto 4.1 % (2.6-8.5); Neutrophils Absolute Auto 15.3 K/mm3 (1.3-6.7); Neutrophils Percent Auto 87.5 % (45.5-73.1); Platelet Count Result 466 k/mm3 (150-375); Red Blood Count 3.84 M/mm3 (4.2-5.4); Red Cell Distribution Width 13.8 % (11.5-14.5); White Blood Count 17.5 K/mm3 (4.5-10.0)
--- NOTE | 2023-06-17 14:41 | PCRCNOTE ---
difficult draw, unable to obtain ABG at this time
[2023-06-17 14:44] LABS: INR 1.2; Prothrombin Time 15.4 Seconds (11.1-14.7)
[2023-06-17 14:45] LABS: Partial Thromboplastin Time 21.7 SECONDS (22.3-36.8)
[2023-06-17 14:46] LABS: Hypochromasia 1+ (NORMAL); Ovalocytes 1+ (NORMAL); Platelet Estimate Increased (Adequate); Schistocytes None Seen (NORMAL)
[2023-06-17 14:48] LABS: Alanine Aminotransferase 19 U/L (6-35); Albumin Level 3.5 g/dL (3.5-5.1); Alkaline Phosphatase 193 U/L (38-126); Anion Gap 13 mmol/L (8-16); Aspartate Amino Transferase 34 U/L (14-36); Bilirubin,Total 1.2 mg/dL (0.2-1.3); Blood Urea Nitrogen 12 mg/dL (7-17); Calcium 8.6 mg/dL (8.4-10.2); Carbon Dioxide 14 mmol/L (22-30); Chloride 107 mmol/L (98-107); Estimated CRCL calculation 85 ml/min; Estimated Glomerular Filt Rate > 60; Glucose 139 mg/dL (65-110); Potassium 4.7 mmol/L (3.4-5.0); Sodium 134 mmol/L (137-145)
[2023-06-17 14:57] LABS: NT Pro B Type Natriuretic Pept 8170 pg/mL (19.9-100)
[2023-06-17 15:02] LABS: Troponin I 0.573 ng/mL (0.000-0.034)
[2023-06-17] MEDS: LEVALBUTEROL NEB 1.25 MG/3 ML (15:17)
[2023-06-17 15:26] LABS: Influenza A QL RT-PCR Negative (Negative); Influenza B QL RT-PCR Negative (Negative); RSV RNA, RT-PCR Negative (Negative); SARS-CoV-2 RNA PCR Negative (Negative)
[2023-06-17] MEDS: FUROSEMIDE INJ 40 MG/4 ML VIAL IV PUSH (15:50)
[2023-06-17] MEDS: levoFLOXacin 750 MG/D5W 150 ML 750 MG/150 ML BAG 100 MG IVPB (15:55)
--- NOTE | 2023-06-17 16:01 | PC.NURSE ---
administered lasix iv and applied purwick for pt comfort.
--- NOTE | 2023-06-17 16:03 | PM.CNCAR ---
Assessment and Plan Assessment and plan (1) Acute congestive heart failure: Code(s): I50.9 - Heart failure, unspecified Status: Acute Assessment and Plan: Presents in acute congestive heart failure two weeks after a late-presentation STEMI s/p successful primary PCI. Continue BIPAP. Agree with IV Lasix. STAT echo pending. Further recommendations/plan pending review of echo. (2) Coronary artery disease: Code(s): I25.10 - Atherosclerotic heart disease of [place] coronary artery without angina pectoris Status: Acute Assessment and Plan: Cardiac catheterization 06/02/2023 for late-presentation STEMI showed: 1. Acute 100% occlusion of proximal LCX s/p successful PCI with placement of JACOBY x 2 in an overlapping fashion in the proximal-mid LCX (extending into OM vessel). 2. Mild disease of LAD and RCA. Diagonal branch disease that is best suited for medical management due to small caliber size. 3. Left ventricular end-diastolic pressure of 13mmHg Continue ASA, Brilinta, statin. (3) Acute hypoxic respiratory failure: Code(s): J96.01 - Acute respiratory failure with hypoxia Status: Acute Assessment and Plan: Continue BIPAP support (4) Mixed hyperlipidemia: Code(s): E78.2 - Mixed hyperlipidemia Status: Acute Assessment and Plan: Continue statin History of Present Illness History of Present Illness Consult date/time: 06/17/23 16:03 Requesting physician: Kylee Salmeron MD Consult reason: congestive heart failure Reason For Visit: Short of breath Narrative: We are consulted for acute congestive heart failure. Dr. Armand Ross is a 62 year old female who was admitted in May 2023 after presenting with STEMI. Patient presented with a late presentation STEMI (presented 12 hours after symptom onset). Emergent cardiac catheterization 06/02/2023 showed acute 100% occlusion of proximal LCX. Mild disease in the LAD and RCA. Successful PCI done with placement of JACOBY x 2 in the proximal-mid LCX (extending into OM vessel). Patient was discharged on 06/04/2023. Patient states she was doing well after hospital discharge, without any cardiac symptoms. However, a couple days ago, she had acute onset of shortness of breath that became progressively worse. Also developed lower extremity edema. Reports occasional chest pain with cough. In the ER, she was placed on BIPAP. CXR with extensive bilateral airspace disease that is likely edema, moderate right pleural effusion. She was given dose of IV Lasix 40mg x 1. EKG with sinus tachycardia with low-voltage (did have low voltage before). NT pro BNP of 8170. At the time of my evaluation, she reports feeling a little better. Review of Systems Review of Systems: All systems reviewed & are unremarkable except as noted in HPI and below (HPI) [facility] Past Medical History Medical History Breast cancer Lumpectomy x3. Treated with XRT and Tamoxifen x 5 yrs Diabetes mellitus Diabetic neuropathy GERD (gastroesophageal reflux disease) Mixed hyperlipidemia Osteoarthritis Recurrent major depression resistant to treatment Surgical History Surgical History H/O thumb surgery S/P breast lumpectomy S/P cholecystectomy Family History Family History Mother Family history of thyroid disease COPD (chronic obstructive pulmonary disease) Oxygen dependent Atrial fibrillation Grandparent Family history of malignant neoplasm of breast Hypertension Colon cancer Father Family history of diabetes mellitus in first degree relative CHF (congestive heart failure) Other Family history of malignant neoplasm of ovary Family history of malignant neoplasm of brain Sibling Diabetes mellitus Hypothyroid Social History Social History Social History:
[2023-06-17] MEDS: PERFLUTREN LIPID MICROSPHERES 1.5 ML VIAL DILUTED TO 10 ML TOTAL VOLUME IV PUSH (16:15)
--- NOTE | 2023-06-17 16:46 | IVDEFINITY ---
Prior to administration of IV Definity the patient was educated on the risks and benefits of the imaging enhancing agent including potential adverse side effects. The patient verbalized understanding. Allergies were verified. No exclusion criteria were identified and at least one of the following inclusion criteria were met: 1) physician request, 2) patient technically difficult to image (per the [place] [employer]ocardi[employer] guidelines of two or more segments not discernable within the apical view), or 3) questionable left ventricular function. ?
--- NOTE | 2023-06-17 17:21 | ECG_ITS ---
Measurements Intervals [place] Rate: 119 P: 75 [place]: 132 QRS: -24 QRSD: 75 T: -55 QT: 340 QTc: 478 Interpretive Statements SINUS TACHYCARDIA LOW QRS VOLTAGE [QRS DEFLECTION < 0.5/1.0 mV IN LIMB/CHEST LEADS] COMPARED TO ECG 06/17/2023 13:27:35 NO SIGNIFICANT CHANGES Electronically Signed On 06-17-2023 19:20:35 INSULATION WORKER FURNACE INSTALLER by Santa Ortega M.D.
[2023-06-17] MEDS: FUROSEMIDE INJ 40 MG/4 ML VIAL 20 MG IV PUSH (17:48)
[2023-06-17 17:52] LABS: Troponin I 0.565 ng/mL (0.000-0.034)
--- NOTE | 2023-06-17 17:56 | PM.IMHP ---
H&P: HPI History of Present Illness Date/Time: 06/17/23 17:56 Chief Complaint: Shortness of breath Narrative: 62yo female with CAD, DM and tobacco abuse who presents to the ED for shortness of breath. She was recently hospitalized here on 06/02/23 for chest pain and found to have elevated troponin to >[address] elevation. She went emergently for LHC and had PCI of left circumflex artery with 2 drug-eluting stent placement. Echo showing EF 55-60% with hypokinetic mid and basal inferolateral and inferior wall and Grade I diastolic dysfunction. She smokes and was educated about the benefits of abstaining from tobacco use. Patient had low blood pressure with SBP 70-90 range. She was given fluid bolus with some improvement.? Patient appeared to be asymptomatic and she stated that her SBP runs 80-90 chronically. TSH was normal. Cortisol slightly elevated. Midodrine added. BP in the right calf was 113/52 so consider subclavian stenosis. She also has DM with recent A1c 12.1. Her diabetes mellitus is poorly controlled related to noncompliance.?Her diabetic medications were adjusted. She was discharged on 06/04. Patient was doing well until about 3-4 days prior to this admission when she developed shortness of breath. She is having a nonproductive cough. No fever or chills. She noted leg edema but had noted this since her last discharge on 06/04. She is having orthopnea but no PND. She has nocturia 1-2 times a night but this is unchanged. No calf pain. She has remained tobacco free over the past 2 weeks. She is having central pleuritic chest pain. Pain also was worse with cough. She is not on oxygen home or BiPAP. No history of sleep apnea, COPD, or asthma. No nausea or vomiting. No diarrhea. No abdominal pain. No dysuria or hematuria. No odynophagia or dysphagia. She has been compliant with her medications including the Brilinta and aspirin. She has been compliant with her diabetic medications and glucose running in th 170 range. Symptoms of shortness of breath progressively worsened prompting her presentation to the emergency room today. In the ED, blood pressure was 105/54 with a pulse of 121 and respiratory rate 31. She was 85% on room air. White count was 17K with hemoglobin 10.4. Hemoglobin unchanged from last discharge. Sodium 134 with serum bicarb of 14. Troponins are elevated 0.57 but the 2nd value is trending downward already. BNP is 8170. LFTs are normal except for alk-phos of 193. Influenza, RSV and COVID PCR swabs were negative. Chest x-ray shows interval development of extensive bilateral airspace disease edema versus pneumonia as well as a moderate right pleural effusion. CT of the chest showed diffuse lung disease consistent with pulmonary edema versus pneumonia and a moderate size right and small left pleural effusion and a moderate size pericardial effusion. Echocardiogram was performed showing moderate LV enlargement with normal wall thickness, severe LV dysfunction and severe hypokinesis to akinesis of the mid and distal inferior gardner and proximal to mid lateral gardner. She has diastolic dysfunction. EF is 25-30%. There is moderate mitral regurgitation and moderate pulmonary hypertension. [id number] TR and significant elevation of the right atrial pressure. There is a small circumferential pericardial effusion measuring about 1 cm with mild invagination of the right atrium during early diastole and occasionally the right ventricle but the tricuspid valve and mitral valve in flows do not show any significant variation so tamponade physiology was not felt to be present. No extravasation of IV contrast into the pericardium noted. EKG shows sinus tachycardia with low voltage. Possible anterior HI probably old. EKG appears similar to EKG performed last month. She was treated with Lasix. She was given nebulizer treatments and Levaquin. She was admitted for further care. Review of Systems Review of Systems:
--- NOTE | 2023-06-17 18:58 | PC.NURSE ---
This patient, Jenn Ross, was admitted to Intensive Care Unit-6. Patient/family oriented to hospital policies and general routines including ID bracelet, bed and alarms, visiting hours, pain management, procedures, bathroom and other care routines, personal items, smoking policy, room service/diet, and visiting hours. Information on how to activate the Rapid Response Team has been discussed. Patient/Family are encouraged to report perceived risks to care and to ask questions if they do not understand what they are told or what they should do.
[2023-06-17 20:02] LABS: Lactic Acid Reflex 1.7 mmol/L (0.7-2.0)
[2023-06-17] MEDS: TICAGRELOR 90 MG TABLET PO (20:10)
[2023-06-17] MEDS: COLCHICINE 0.6 MG TABLET PO (20:10)
[2023-06-17 20:11] LABS: Alveolar/Arterial O2 Gradient 484.6 mmHg; Base Excess ABG -7.4 mEq/l (+/-2.0); Fractional Inspired Oxygen 85 %; HCO3 ABG 15.7 mEq/l (22.0-26.0); Oxygen Content ABG 15.9 %vol (16.0-22.0); Oxygen Saturation ABG 97.5 % (95.0-100.0); Oxyhemoglobin 95.7 % THb (90.0-100.0); PCO2 ABG 25.2 mmHg (35.0-45.0); PO2 ABG 95.3 mmHg (80.0-100.0); PO2 FiO2 Ratio Arterial Blood 1.12 %; Total Hemoglobin 11.7 g/dL (12.0-18.0); pH ABG 7.412 (7.350-7.450)
[2023-06-17 20:13] LABS: Device NON-INVASIVE VENT; Modified Allen's Test Pass; Site Drawn LEFT RADIAL
[2023-06-17 20:14] LABS: Non-Invasive Expiratory Pressure 7 CMH2O; Non-Invasive Inspiratory Pressure 14 CMH2O; Non-Invasive Vent Rate 16 /MIN
[2023-06-17 20:21] LABS: Troponin I 0.579 ng/mL (0.000-0.034)
[2023-06-17 21:00] LABS: Procalcitonin 1.2 ng/mL
[2023-06-18] VITALS (40 sets, daily range): BP systolic 67–127; BP diastolic 46–76; PULSE 101–162; RESP 18–42; TEMP 36.2–38.1; O2SAT 91–99
[2023-06-18] MEDS: FUROSEMIDE INJ 40 MG/4 ML VIAL 20 MG IV PUSH (00:20)
[2023-06-18 00:24] LABS: Glucose Point of Care 151 mg/dl (65-105)
[2023-06-18 03:39] LABS: Basophils Percent Auto 0.2 % (0.2-1.2); Eosinophils Percent Auto 0.1 % (0-4.4); Hematocrit 30.6 % (37.0-47.0); Hemoglobin 9.4 g/dL (12.0-15.0); Immature Granulocyte Absolute 0.18 K/mm3 (0.00-0.031); Immature Granulocyte Percent A 1.2 % (0-0.5); Lymphocytes Absolute Auto 0.99 K/mm3 (0.9-3.2); Lymphocytes Percent Auto 6.6 % (18.3-44.2); Mean Corpuscular HGB Conc 30.7 g/dl (32-36); Mean Corpuscular Hemoglobin 27.2 pg (26-34); Mean Corpuscular Volume 88.7 fl (80-100); Monocytes Absolute Auto 0.6 K/mm3 (0.1-0.6); Monocytes Percent Auto 3.9 % (2.6-8.5); Neutrophils Absolute Auto 13.2 K/mm3 (1.3-6.7); Platelet Count Result 436 k/mm3 (150-375); Red Blood Count 3.45 M/mm3 (4.2-5.4)
[2023-06-18 03:53] LABS: Alanine Aminotransferase 19 U/L (6-35); Albumin Level 3.1 g/dL (3.5-5.1); Alkaline Phosphatase 172 U/L (38-126); Anion Gap 17 mmol/L (8-16); Aspartate Amino Transferase 46 U/L (14-36); Bilirubin,Total 1.2 mg/dL (0.2-1.3); Blood Urea Nitrogen 18 mg/dL (7-17); Calcium 8.2 mg/dL (8.4-10.2); Carbon Dioxide 17 mmol/L (22-30); Chloride 106 mmol/L (98-107); Creatine Kinase 47 U/L (30-135); Estimated CRCL calculation 72 ml/min; Estimated Glomerular Filt Rate > 60; Glucose 149 mg/dL (65-110); Magnesium 2.1 mg/dL (1.6-2.3); Phosphorus 4.8 mg/dL (2.5-4.5); Potassium 3.3 mmol/L (3.4-5.0); Sodium 140 mmol/L (137-145)
[2023-06-18 04:23] LABS: Appearance Urine Clear (Clear); Bacteria Urine Rare /hpf; Bilirubin Urine Negative (Negative); Blood Urine Negative (Negative); Color Urine Yellow (Yellow); Glucose Urine UA 3+ mg/dL (Negative); Ketones Urine 1+ mg/dL (Negative); Leukocyte Esterase Ur Trace LEU/UL (NEGATIVE); Nitrate Urine Negative (Negative); Protein Urine Negative (Negative); RBC Urine 0-2 /hpf (0-2); Specific Grav Ur 1.013 (1.001-1.035); Squamous Epithelial Cell Urine None seen /hpf (Few); Urobilinogen Urine 0.2 mg/dL (<2.0); WBC Urine 0-5 /hpf (0-3)
[2023-06-18 05:31] LABS: Add Urine Microscopic? YES
--- NOTE | 2023-06-18 09:23 | WPDCNINT ---
Assessment and Plan Assessment and plan (1) Acute hypoxic respiratory failure: Code(s): J96.01 - Acute respiratory failure with hypoxia Status: Acute Assessment and Plan: Acute Respiratory failure secondary to congestive heart failure pulmonary edema and pleural effusion. ? Community-acquired pneumonia although appears unlikely considering history and cardiac findings Blood culture sent to the ER. Patient is on empiric Levaquin she is allergic to cephalosporin Patient is currently on BiPAP 14/7 75% FiO2. Will wean FiO2 down to 70% and change EPAP to 8 Continue diuresis and hope to wean down FiO2 Discussed with the patient she is at risk of requiring intubation and mechanical ventilation if she does not improve or deteriorate further Bronchodilators p.r.n. May need thoracentesis if the pleural effusion does not with diuresis Chest CT 1. Diffuse lung disease, consistent with pulmonary edema versus pneumonia. 2. Moderate-sized right and small left pleural effusions. 3. Moderate-sized pericardial effusion. Influenza RSV and coronavirus PCR negative Urine pneumococcal antigen pending (2) CHF (congestive heart failure): Code(s): I50.9 - Heart failure, unspecified Status: Acute Assessment and Plan: Patient had recent STEMI and had PCI on 06/02 ? 1. Acute 100% occlusion of proximal LCX s/p successful PCI with placement of JACOBY x 2 in an overlapping fashion in the proximal-mid LCX (extending into OM vessel). 2. Mild disease of LAD and RCA. Diagonal branch disease that is best suited for medical management due to small caliber size. Echo at that time showed EF of 55-60%. mid and basal inferolateral and inferior gardner are hypokinetic. The left ventricular diastolic function is grade I diastolic dysfunction. Right ventricular systolic function is normal. On presentation CT scan showed diffuse lung disease consistent with pulmonary edema, moderate right and small left pleural effusion Stat echo was performed Summary ? 1. Moderate left ventricular enlargement with normal wall thickness.? Severe left ventricular dysfunction with severe hypokinesis to akinesis of the mid and distal inferior gardner, and the proximal to mid lateral gardner.? Diastolic dysfunction is present.? Estimated ejection fraction is 25-30%.? Global longitudinal strain was also low at -12%. ? 2. Left atrial chamber dimension is moderately enlarged. ? 3. There is moderate mitral valve regurgitation. ? 4. There is mild to moderate tricuspid valve regurgitation. ? 5. Moderate pulmonary hypertension, estimated pulmonary arterial systolic pressure is 57 mmHg. ? 6. Dilated inferior vena cava with <50% collapse upon inspiration consistent with significantly elevated right atrial pressure, 20 mmHg. ? 7. There is small circumferential pericardial effusion measuring 0.5-1.0 cm in thickness.? There is mild invagination of the right atrium during early diastole and occasionally the right ventricle, but the tricuspid valve and mitral valve in flows do not show any significant variation.? Therefore I doubt there is any tamponade physiology present. ? 8. Normal sinus rhythm. ? 9. Somewhat technically difficult study, IV definity used. ? 10. No extravasation of IV definity into the pericardium, thus, no suggestion of myocardial perforation or rupture Patient was started on colchicine for pericarditis Stent complication unlikely patient denies any chest pain and troponins have a very low elevation and flat curve. Discussed with Cardiology continue aspirin Brilinta statin I will continue Lasix. Increase Lasix to 40 mg IV q.12 hours. Patient has low blood pressure at baseline although it is adequate at this time. She may need vasopressor support. Will get PICC line placed empirically to avoid femoral central venous catheter insertion in emergency. Patient unable to lay flat. Discussed with Cardiology. Plan to start Entresto low-dose see if patient tolerates. Cardiology recommends
--- NOTE | 2023-06-18 09:29 | PM.PNCARD ---
Progress Note: A&P Assessment and Plan (1) Ischemic cardiomyopathy: Code(s): I25.5 - Ischemic cardiomyopathy Status: Acute Plan 62-year-old lady after recent acute TN with late presentation treated with stenting of the circumflex. Now presents with decompensated left-sided heart failure and no real evidence of right-sided failure. Patient is still clinically and radiologically volume overloaded despite IV furosemide. Blood pressure is marginal. Will need to attempt cautiously treating her with guideline directed medical therapy for ischemic myopathy. In addition to continuing IV furosemide and going to start a modest dose of Entresto this morning to see if she hemodynamically tolerates that. Will not start a beta-javi today. She did not go home from the hospital on any medication for LV systolic function as her ejection fraction was okay at the time of her recent admission. Obviously dual anti-platelet therapy and statin will be continued Kofi Kaiser MD [facility] Subjective Date/time seen: date of service:06/18/23 09:29 Interval history: Follow-up visit in this 62-year-old lady with: Apparent severe ischemic cardiomyopathy following recent acute TN treated with emergency circumflex stenting albeit with late presentation. Presenting with decompensated left-sided CHF and echocardiogram demonstrates very low ejection fraction with functional mitral regurgitation. This morning patient is essentially comfortable but still with high FiO2 requirement Exam Const: General: comfortable and no acute distress Other: thin anxious-appearing lady no distress otherwise HENMT: Mouth: Yes moist mucous membranes Eyes: Sclera: sclerae normal Neck: Neck: supple and no JVD Resp: Other: patient has basilar crackles as well as tubular breath sounds indicative of underlying COPD Cardio: Rate: tachycardic Rhythm: regular rhythm Other: no audible MR by exam GI: GI Palp: Yes Soft to palpation Auscultation: normal bowel sounds Skin: General skin exam: normal color Neuro: Other: alert and oriented x3 Extrem: Other: good perfusion, no edema Objective Data Vital Signs Vital Signs: Vital Signs - 24 hr 06/17/23 13:35 06/17/23 15:12 06/17/23 15:19 Temperature 36.6 C Pulse Rate 121 H 121 H Respiratory Rate 31 H 38 H 29 H Blood Pressure 105/54 L 100/59 L Pulse Oximetry 85 L 100 Oxygen Delivery BiPAP Fraction of Inspired Oxygen 06/17/23 16:16 06/17/23 17:10 06/17/23 17:17 Temperature Pulse Rate 123 H 121 H Respiratory Rate 18 34 H 33 H Blood Pressure 101/64 94/60 L Pulse Oximetry 100 97 Oxygen Delivery BiPAP Fraction of Inspired Oxygen 06/17/23 17:50 06/17/23 18:13 06/17/23 18:30 Temperature 36.8 C Pulse Rate 115 H 116 H 105 H Respiratory Rate 23 H 31 H 29 H Blood Pressure 94/59 L 91/65 L 83/54 L Pulse Oximetry 97 100 97 Oxygen Delivery Fraction of Inspired Oxygen 06/17/23 19:59 06/17/23 20:00 06/17/23 20:00 Temperature 36.6 C Pulse Rate 105 H 105 H 110 H Respiratory Rate 35 H 26 H Blood Pressure 87/64 L Pulse Oximetry 100 100 Oxygen Delivery BiPAP Fraction of Inspired Oxygen 85 06/17/23 20:16 06/17/23 22:00 06/17/23 22:00 Temperature Pulse Rate 110 H 111 H Respiratory Rate 33 H 31 H Blood Pressure 96/64 L Pulse Oximetry 99 99 Oxygen Delivery BiPAP Fraction of Inspired Oxygen 06/17/23 23:43 06/18/23 00:00 06/18/23 00:00 Temperature Pulse Rate 106 H 106 H Respiratory Rate 34 H 30 H Blood Pressure Pulse Oximetry 98 96 Oxygen Delivery BiPAP BiPAP Fraction of Inspired Oxygen 85 06/18/23 00:00 06/18/23 02:00 06/18/23 02:00 Temperature 36.8 C Pulse Rate 105 H 105 H 105 H Respiratory Rate 30 H 29 H Blood Pressure 101/59 L 113/62 Pulse Oximetry 96 96 Oxygen Delivery Fraction of Inspired Oxygen 06/18/23 02:46 06/18/23 04:00 06/18/23 04:
[2023-06-18] MEDS: FUROSEMIDE INJ 40 MG/4 ML VIAL IV PUSH ×2 (10:02→20:23)
[2023-06-18] MEDS: LIDOCAINE HCL 1% PF INJ 5 ML VIAL INFILTRATE (10:47)
[2023-06-18] MEDS: COLCHICINE 0.6 MG TABLET PO ×2 (10:57→21:09)
[2023-06-18] MEDS: ENOXAPARIN 40 MG/0.4 ML SYRINGE SUB-Q (10:57)
[2023-06-18] MEDS: SACUBITRIL/VALSARTAN 12-13 MG TABLET 1 TAB PO ×2 (10:57→21:09)
[2023-06-18] MEDS: ASPIRIN 81 MG ENTERIC TABLET PO (10:57)
[2023-06-18] MEDS: TICAGRELOR 90 MG TABLET PO ×2 (10:57→21:09)
[2023-06-18 11:55] LABS: Glucose Point of Care 142 mg/dl (65-105)
--- NOTE | 2023-06-18 12:46 | P.CDI_ITS ---
CDI Query Clarification Request CHF noted in the assessment and plan. Elevated BNP on 06/17/23 lab work. Patient receiving Lasix and Entresto. Pulmonary edema noted on the 06/17/[address] Patent presented with shortness of breath with exertion. Please specify type and acuity of heart failure if known. * Acute * Chronic * Acute on Chronic * Unknown * Systolic * Diastolic * Combined Systolic and Diastolic * Unknown
[2023-06-18] MEDS: ACETAMINOPHEN 325 MG TABLET 650 MG PO (13:47)
[2023-06-18] MEDS: levoFLOXacin 750 MG/D5W 150 ML 750 MG/150 ML BAG 100 MG IVPB (13:48)
[2023-06-18] MEDS: CENTRAL LINE FLUSH 10 ML IV PUSH ×2 (13:56→21:09)
[2023-06-18 14:59] LABS: Alveolar/Arterial O2 Gradient 303.5 mmHg; Base Excess ABG -11.6 mEq/l (+/-2.0); Carboxyhemoglobin 0.2 % THb (0-2.0); Fractional Inspired Oxygen 55 %; HCO3 ABG 12.5 mEq/l (22.0-26.0); Methemoglobin ABG 0.1 %THb (0-1.5); Oxygen Saturation ABG 91.5 % (95.0-100.0); Oxyhemoglobin 89.4 % THb (90.0-100.0); PO2 ABG 62.7 mmHg (80.0-100.0); PO2 FiO2 Ratio Arterial Blood 1.14 %; Reduced Hemoglobin 10.3 %THb (0-5.0); Total Hemoglobin 10.3 g/dL (12.0-18.0); pH ABG 7.347 (7.350-7.450)
[2023-06-18 15:01] LABS: PCO2 ABG 23.3 mmHg (35.0-45.0)
[2023-06-18 15:02] LABS: Device NON-INVASIVE VENT; Non-Invasive Expiratory Pressure 8 CMH2O; Non-Invasive Inspiratory Pressure 14 CMH2O; Non-Invasive Vent Rate 16 /MIN; Site Drawn LEFT BRACHIAL
[2023-06-18] MEDS: KCL 40 MEQ/WATER 100 ML 100 ML 25 ML IVPB (15:02)
[2023-06-18] MEDS: NOREPINEPHRINE 8 MG/D5W 250 ML 8 MG/250 ML BAG 9.38 MG IV CONT (16:36)
[2023-06-18] MEDS: SODIUM BICARBONATE 8.4% 50 MEQ/50 ML SYRINGE IV PUSH (17:23)
--- NOTE | 2023-06-18 17:33 | PM.IMPN ---
Progress Note: A&P Assessment and Plan (1) Acute hypoxic respiratory failure: Code(s): J96.01 - Acute respiratory failure with hypoxia Status: Acute Assessment and Plan: Patient presents with shortness of breath and found to have acute hypoxic respiratory failure secondary to CHF with pulmonary edema and pleural effusion. Consider community-acquired pneumonia although appears unlikely considering history and cardiac findings. CT Chest showing diffuse lung disease, moderate right and small left pleural effusion and moderate sized pericardial effusion. Influenza, RSV, COVID PCR negative. Echocardiogram showing a significant decrease in her EF.? WBC was elevated but better today Metabolic acidosis noted with normal lactic. Probably related to poor perfusion from poor EF. BCx NGTD. She has been started on Levaquin since she is allergic to cephalosporin.? May need thoracentesis. Bicarb given Given her worsening condition, plan for intubation (2) Cardiogenic shock: Code(s): R57.0 - Cardiogenic shock Status: Acute Assessment and Plan: BP chronically low with SBP 80-90. BP dropped with Lasix treatment PICC line placed Started on Levophed, titrate to maintain MAP>65 (3) CHF (congestive heart failure): Code(s): I50.9 - Heart failure, unspecified Status: Acute Assessment and Plan: Patient had recent STEMI 06/02 and had PCI with placement of JACOBY x 2 in an overlapping fashion in the proximal-mid LCX. Echo showing EF 55-60% with mid and basal inferolateral and inferior wall hypokinesis and Grade I diastolic dysfunction. Patient presents with worsening SOB. Echo here showing moderate LV enlargement with normal wall thickness, severe LV dysfunction and severe hypokinesis to akinesis of the mid and distal inferior gardner and proximal to mid lateral gardner.? She has diastolic dysfunction.? EF is 25-30%. There is moderate MR and moderate pulmonary hypertension.? [id number] TR and significant elevation of the right atrial pressure. Consider pericarditis related to recent STEMI. Colchicine has been started. Routine heart failure medications may be difficult given her chronically low blood pressure. Entresto started Continue Lasix IV and dose advanced. Monitor daily weight and I/O. (4) Pericardial effusion: Code(s): I31.39 - Other pericardial effusion (noninflammatory) Status: Acute Assessment and Plan: As above.? Consider Miki syndrome Colchicine started. (5) Mitral regurgitation: Code(s): I34.0 - Nonrheumatic mitral (valve) insufficiency Status: Acute Assessment and Plan: Patient noted to have moderate mitral regurgitation.? Probably related to worsening EF. (6) Coronary artery disease: Code(s): I25.10 - Atherosclerotic heart disease of [place] coronary artery without angina pectoris Status: Acute Assessment and Plan: Patient recently hospitalized 2 weeks ago for STEMI.? She had PCI and drug-eluting stent placed x2 in the LCX.? Patient has been compliant with her aspirin and Brilinta.? The elevated troponins are noted prior related to above.? These also could be still trending downward from her STEMI.? Continue Brilinta and aspirin. (7) Ischemic cardiomyopathy: Code(s): I25.5 - Ischemic cardiomyopathy Status: Acute Assessment and Plan: As above (8) Uncontrolled diabetes mellitus: Status: Acute Assessment and Plan: Patient has been compliant with her home medications.? Will resume medications when she is able to take oral intake.? A1c 12.1 last admission Will cover her with sliding scale.? Hypoglycemia protocol available as needed. (9) Mixed hyperlipidemia: Code(s): E78.2 - Mixed hyperlipidemia Status: Acute Assessment and Plan: LFTs noted. Atorvastatin has been resumed (10) Tobacco abuse: Code(s): Z72.0 - Tobacco use St
[2023-06-18] MEDS: FENTANYL 2,500MCG/NS250ML(*CRX 2,500 MCG/250 ML BAG IV CONT (18:40)
[2023-06-18] MEDS: MIDAZOLAM 100MG/NS 100ML(*CRX) 100 MG/100 ML BAG IV CONT (18:40)
[2023-06-18] MEDS: PROPOFOL IV EMULSION 200 MG/20 ML VIAL 20 MG IV PUSH (18:44)
[2023-06-18] MEDS: ETOMIDATE 20 MG/10 ML AMPUL 4 MG IV PUSH (18:45)
[2023-06-18] MEDS: SUCCINYLCHOLINE CHLORIDE 20 MG/ML 10 ML VIAL 80 MG IV PUSH (18:45)
[2023-06-18] MEDS: PHENYLEPHRINE 1,000 MCG/10 ML SYRINGE 100 MCG IV PUSH (18:46)
[2023-06-18 19:08] LABS: Anion Gap 27 mmol/L (8-16); Blood Urea Nitrogen 23 mg/dL (7-17); Calcium 8.7 mg/dL (8.4-10.2); Carbon Dioxide 9 mmol/L (22-30); Chloride 108 mmol/L (98-107); Estimated CRCL calculation 50 ml/min; Estimated Glomerular Filt Rate > 60; Glucose 200 mg/dL (65-110); Magnesium 2.4 mg/dL (1.6-2.3); Sodium 144 mmol/L (137-145)
--- NOTE | 2023-06-18 19:09 | WPDANESEPP ---
Anes - Eval Pre Procedure Procedure: Intubation Date/Time: 06/18/23 19:09 Preop Diagnosis: hypoxic respiratory failure Pre Op Diagnosis: acute hypoxic respiratory failure,chf,pneumonia Patient Data Age: 62 Gender: F Height: 1.63 m Weight: 55.79 kg Last Vital Signs Temp 37.0 C 06/18/23 18:00 Pulse 112 H 06/18/23 18:00 Resp 40 H 06/18/23 18:00 BP 88/57 L 06/18/23 18:00 Pulse Ox 92 06/18/23 18:00 O2 Del Method BiPAP 06/18/23 16:57 FiO2 60 06/18/23 16:00 Allergies Allergy/AdvReac Type Severity Reaction Status Date / Time ceftriaxone Allergy Unknown Itching Verified 06/17/23 13:51 clarithromycin Allergy Unknown Itching Verified 06/17/23 13:51 Home Medications Medication Instructions Recorded Confirmed Type empagliflozin 25 mg tablet 25 mg PO QAM 07/28/19 06/17/23 History (Jardiance) semaglutide 1 mg/dose (2 mg/1.5 1 mg subcut WEEKLY 07/28/19 06/17/23 History mL) subcutaneous pen injector (Ozempic) sertraline 100 mg tablet (Zoloft) 200 mg PO DAILY 07/28/19 06/17/23 History aspirin 81 mg tablet,delayed 81 mg PO QAM #90 tabs 06/02/23 06/17/23 Rx release atorvastatin 80 mg tablet 80 mg PO DAILY #90 tabs 06/02/23 06/17/23 Rx clotrimazole-betamethasone 1 1 applic topical DAILY 06/02/23 06/17/23 History %-0.05 % topical cream gabapentin 100 mg capsule 100 mg PO TID 06/02/23 06/17/23 History omeprazole 40 mg capsule,delayed 40 mg PO DAILY 06/02/23 06/17/23 History release ticagrelor 90 mg tablet (Brilinta) 90 mg PO Q12HR #180 tabs 06/02/23 06/17/23 Rx insulin glargine 100 unit/mL (3 10 unit (0.1 mL) subcut HS #15 mL 06/04/23 06/17/23 Rx mL) subcutaneous pen metformin 500 mg tablet 250 mg PO BIDWMEAL #30 tabs 06/04/23 06/17/23 Rx pen needle, diabetic 32 gauge x #1 pkg 06/04/23 06/17/23 Rx 32 (BD Ultra-Fine Martina Pen Needle) Laboratory Tests 06/17/23 06/17/23 06/18/23 19:26 19:42 00:21 WBC RBC Hgb Hct MCV MCH MCHC RDW Plt Count MPV Immature Gran % (Auto) Neut % (Auto) Lymph % (Auto) [place] % (Auto) Eos % (Auto) Baso % (Auto) Lymph # (Auto) [place] # (Auto) Eos # (Auto) Baso # (Auto) Abs Immat Gran (auto) Absolute Neuts (auto) Absolute Nucleated RBC Nucleated RBC % Puncture Site Left radial ABG pH 7.412 (7.350-7.450) ABG pCO2 25.2 L mmHg (35.0-45.0) ABG pO2 95.3 mmHg (80.0-100.0) ABG PO2/FiO2 Ratio 1.12 % ABG HCO3 15.7 L mEq/l (22.0-26.0) ABG O2 Saturation 97.5 % (95.0-100.0) ABG O2 Content 15.9 L %vol (16.0-22.0) ABG Base Excess -7.4 mEq/l (+/-2.0) A-a Gradient 484.6 mmHg Oxyhemoglobin 95.7 % THb (90.0-100.0) Carboxyhemoglobin Methemoglobin Reduced Hemoglobin Total Hemoglobin 11.7 L g/dL (12.0-18.0) O2 Delivery Device Non-invasive vent O2 Liters/Min Not Reportable Vent Rate 16 /MIN FiO2 85 % Expiratory Pressure 7 CMH2O Inspiratory Pressure 14 CMH2O Sodium Potassium Chloride Carbon Dioxide Anion Gap BUN Creatinine Estim Creat Clear Calc Estimated GFR Glucose POC Capillary Glucose 151 H mg/dl (65-105) Lactic Acid 1.7 mmol/L (0.7-2.0) Calcium Phosphorus Magnesium Total Bilirubin AST ALT Alkaline Phosphatase Total Creatine Kinase Troponin I 0.579 H* ng/mL (0.000-0.034) To
--- NOTE | 2023-06-18 19:10 | WPDPROCEDUR ---
Procedures Intubation Intubation Date: 06/18/23 Sedative: other (etomidate 8 mg, propofol 20 mg) Mg given: 40 Paralytic: succinylcholine Laryngoscope: fiber optic video scope ET tube size: 7.5 Tube secured depth (cm): 23 Tube placement confirmation: visualized tube passing through cords, equal breath sounds bilaterally and confirmation by capnometry Patient tolerated procedure: well Intubation complications: none
[2023-06-18 19:39] LABS: Alveolar/Arterial O2 Gradient 601.5 mmHg; Base Excess ABG -16.1 mEq/l (+/-2.0); Fractional Inspired Oxygen 100 %; HCO3 ABG 10.8 mEq/l (22.0-26.0); Oxygen Content ABG 14.8 %vol (16.0-22.0); Oxygen Saturation ABG 93.5 % (95.0-100.0); Oxyhemoglobin 91.5 % THb (90.0-100.0); PCO2 ABG 29.5 mmHg (35.0-45.0); PO2 FiO2 Ratio Arterial Blood 0.82 %; Total Hemoglobin 11.4 g/dL (12.0-18.0)
[2023-06-18 19:41] LABS: Site Drawn RIGHT BRACHIAL; pH ABG 7.183 (7.350-7.450)
[2023-06-18 19:42] LABS: Arterial Blood Gas PEEP 8 cmH2O; Arterial Blood Gas Tidal Volume 400 ml; Arterial Blood Gas Vent Mode CMV; Arterial Blood Gas Ventilator rate 20 /MIN; Device VENTILATOR
[2023-06-18] MEDS: SODIUM BICARBONATE 8.4% 50 MEQ/50 ML SYRINGE 100 MEQ IV PUSH (20:09)
[2023-06-18] MEDS: DOBUTamine 250 MG/D5W 250 ML 250 MG/250 ML BAG 8.37 MG IV CONT (20:20)
[2023-06-18] MEDS: MINERAL OIL/WHITE PETROLATUM OINTMENT 1 APPLIC EACH EYE (20:23)
[2023-06-18] MEDS: PANTOPRAZOLE SODIUM IV 40 MG VIAL IV PUSH (20:39)
[2023-06-18] MEDS: VANCOMYCIN 1,500 MG/NS 500 ML 1,500 MG/500 ML BAG 250 MG IVPB (20:56)
[2023-06-18 23:11] LABS: Glucose Point of Care 237 mg/dl (65-105)
[2023-06-18] MEDS: INSULIN ASPART (*BKC) 100 UNITS/ML SUB-Q (23:14)
--- NOTE | 2023-06-18 23:32 | ECG_ITS ---
Measurements Intervals [place] Rate: 156 P: NC: 0 QRS: -17 QRSD: 90 T: 0 QT: 307 QTc: 495 Interpretive Statements ATRIAL FIBRILLATION WITH RAPID VENTRICULAR RESPONSE LOW QRS VOLTAGE IN EXTREMITY LEADS ST DEPRESSION, CONSIDER SUBENDOCARDIAL INJURY Electronically Signed On 06-20-2023 10:17:22 STRAW BALER by Mark Brooks M.D.
[2023-06-18] MEDS: AMIODARONE 150 MG/D5W 100 ML 150 MG/100 ML BAG 600 MG IV CONT (23:45)
[2023-06-18] MEDS: AMIODARONE 360 MG/D5W 200 ML 360 MG/200 ML BAG 33.33 MG IV CONT (23:46)
[2023-06-19] VITALS (28 sets, daily range): BP systolic 76–98; BP diastolic 45–63; PULSE 85–150; RESP 10–20; TEMP 36.2–36.9; O2SAT 92–100
--- NOTE | 2023-06-19 01:03 | PM.CCN ---
Critical Care Event Note Summary Code activated: No Narrative: This case had a high probability of a clinically significant, sudden, or life threatening deterioration of this patient's condition which required my full and direct attention, intervention and personal management. Patient had presented here for shortness of breath and found to have acute hypoxic respiratory failure secondary to CHF. Imaging showed pulmonary edema and pleural effusions. Was recently admitted and treated for VT, stent placed to circumflex. Echo prior to discharge showed EF of 55-60%, echo now showing EF of 25-30%. Patient placed on Levophed. Despite prolonged BiPAP use and diuresis, patient remained tachypneic and increasingly fatigued. Due to progressive deterioration, plan for intubation. Patient verbalized understanding of risks/benefits. Facilitated between ED provider and Anesthesiology for elective intubation. Medical POA paperwork signed by patient prior to procedure, elected Manoj Bahena (son) as POA. Also discussed with patient if she had any procedures she would not like performed (i.e. g-tube, trach, etc.) and patient okay with any procedure deemed necessary. Anesthesiology ultimately intubated, provided report to provider on patient's case. Please see procedure note for intubation details. No immediate complications. Extensive education on disease process, lab findings, and imaging provided to patient's son and daughter prior to procedure, answered all questions family members wished to discuss. Also had lengthy conversation with patient's family friends (x2), patient provided verbal permission prior to discussion, about patient's case and reasons for intubation. Family friend requesting records, discussed that patient or patient's POA would need to request this. Critical care time: 75 - 104 mins
[2023-06-19] MEDS: NOREPINEPHRINE 8 MG/D5W 250 ML 8 MG/250 ML BAG 54.38 MG IV CONT (01:33)
[2023-06-19 03:04] LABS: MRSA (PCR) NOT DETECTED (NOT DETECTE)
[2023-06-19 05:17] LABS: Alveolar/Arterial O2 Gradient 460.5 mmHg; Carboxyhemoglobin 0.2 % THb (0-2.0); Fractional Inspired Oxygen 90 %; HCO3 ABG 13.4 mEq/l (22.0-26.0); Methemoglobin ABG 0.2 %THb (0-1.5); Oxygen Content ABG 19.3 %vol (16.0-22.0); Oxygen Saturation ABG 98.5 % (95.0-100.0); Oxyhemoglobin 97.7 % THb (90.0-100.0); PCO2 ABG 33.2 mmHg (35.0-45.0); PO2 ABG 147.2 mmHg (80.0-100.0); PO2 FiO2 Ratio Arterial Blood 1.64 %; Reduced Hemoglobin 1.9 %THb (0-5.0); Total Hemoglobin 13.9 g/dL (12.0-18.0)
[2023-06-19] MEDS: SODIUM BICARBONATE 8.4% 50 MEQ/50 ML SYRINGE 100 MEQ IV PUSH (05:26)
[2023-06-19] MEDS: LACTATED RINGERS 500 ML 999 ML IV CONT (05:26)
[2023-06-19] MEDS: CENTRAL LINE FLUSH 10 ML IV PUSH (05:27)
[2023-06-19] MEDS: AMIODARONE 360 MG/D5W 200 ML 360 MG/200 ML BAG 33.33 MG IV CONT (05:27)
[2023-06-19 05:43] LABS: Device VENTILATOR; Modified Allen's Test Pass; Site Drawn LEFT RADIAL; pH ABG 7.225 (7.350-7.450)
[2023-06-19 05:44] LABS: Arterial Blood Gas Vent Mode CMV; Arterial Blood Gas Ventilator rate 20 /MIN
[2023-06-19 05:45] LABS: Arterial Blood Gas PEEP 10 cmH2O; Arterial Blood Gas Tidal Volume 400 ml
[2023-06-19 06:05] LABS: Basophils Percent Auto 0.2 % (0.2-1.2); Hematocrit 32.9 % (37.0-47.0); Hemoglobin 9.7 g/dL (12.0-15.0); Immature Granulocyte Absolute 0.18 K/mm3 (0.00-0.031); Immature Granulocyte Percent A 0.9 % (0-0.5); Lymphocytes Absolute Auto 1.36 K/mm3 (0.9-3.2); Lymphocytes Percent Auto 6.8 % (18.3-44.2); Mean Corpuscular HGB Conc 29.5 g/dl (32-36); Mean Corpuscular Hemoglobin 26.9 pg (26-34); Mean Corpuscular Volume 91.1 fl (80-100); Mean Platelet Volume 9.2 fl (7.4-10.4); Monocytes Percent Auto 4.8 % (2.6-8.5); Neutrophils Absolute Auto 17.5 K/mm3 (1.3-6.7); Neutrophils Percent Auto 87.3 % (45.5-73.1); Platelet Count Result 606 k/mm3 (150-375); Red Blood Count 3.61 M/mm3 (4.2-5.4); Red Cell Distribution Width 14.5 % (11.5-14.5); White Blood Count 20.1 K/mm3 (4.5-10.0)
[2023-06-19] MEDS: NOREPINEPHRINE 8 MG/D5W 250 ML 8 MG/250 ML BAG 56.25 MG IV CONT (06:09)
[2023-06-19 06:29] LABS: Alanine Aminotransferase 17 U/L (6-35); Albumin Level 2.9 g/dL (3.5-5.1); Alkaline Phosphatase 199 U/L (38-126); Anion Gap 25 mmol/L (8-16); Aspartate Amino Transferase 47 U/L (14-36); Bilirubin,Total 0.7 mg/dL (0.2-1.3); Blood Urea Nitrogen 30 mg/dL (7-17); Calcium 7.5 mg/dL (8.4-10.2); Carbon Dioxide 15 mmol/L (22-30); Chloride 98 mmol/L (98-107); Estimated CRCL calculation 41 ml/min; Estimated Glomerular Filt Rate 50; Glucose 531 mg/dL (65-110); Magnesium 2.2 mg/dL (1.6-2.3); Potassium 3.3 mmol/L (3.4-5.0); Sodium 138 mmol/L (137-145)
[2023-06-19 06:47] LABS: Glucose Point of Care 351 mg/dl (65-105)
[2023-06-19 06:49] LABS: Burr Cells 3+ (NORMAL); Platelet Estimate Increased (Adequate); Schistocytes None Seen (NORMAL)
[2023-06-19] MEDS: INSULIN ASPART (*BKC) 100 UNITS/ML SUB-Q (06:52)
[2023-06-19 07:47] LABS: Alanine Aminotransferase 17 U/L (6-35); Alkaline Phosphatase 208 U/L (38-126); Anion Gap 25 mmol/L (8-16); Aspartate Amino Transferase 43 U/L (14-36); Bilirubin,Total 0.7 mg/dL (0.2-1.3); Blood Urea Nitrogen 30 mg/dL (7-17); Calcium 7.4 mg/dL (8.4-10.2); Carbon Dioxide 14 mmol/L (22-30); Chloride 96 mmol/L (98-107); Estimated CRCL calculation 45 ml/min; Estimated Glomerular Filt Rate 56; Glucose 608 mg/dL (65-110); Potassium 3.1 mmol/L (3.4-5.0); Sodium 135 mmol/L (137-145)
[2023-06-19] MEDS: KCL 40 MEQ/WATER 100 ML 100 ML 25 ML IVPB (08:59)
[2023-06-19] MEDS: POTASSIUM CHLORIDE 20 MEQ PACKET (FOR LIQUID) 40 MEQ FEED TUBE (08:59)
[2023-06-19] MEDS: CALCIUM GLUC 2,000 MG/NS 100ML 2,000 MG/100 ML BAG 100 MG IVPB (09:00)
[2023-06-19] MEDS: COLCHICINE 0.6 MG TABLET PO (09:10)
[2023-06-19] MEDS: SODIUM BICARBONATE TAB 650 MG TABLET FEED TUBE (09:10)
[2023-06-19] MEDS: ENOXAPARIN 40 MG/0.4 ML SYRINGE SUB-Q (09:10)
[2023-06-19] MEDS: TICAGRELOR 90 MG TABLET PO (09:10)
[2023-06-19] MEDS: ASPIRIN 81 MG ENTERIC TABLET PO (09:10)
[2023-06-19] MEDS: ATORVASTATIN 40 MG TABLET 80 MG PO (09:10)
[2023-06-19] MEDS: MINERAL OIL/WHITE PETROLATUM OINTMENT 1 APPLIC EACH EYE (09:11)
[2023-06-19] MEDS: PANTOPRAZOLE SODIUM IV 40 MG VIAL IV PUSH (09:11)
--- NOTE | 2023-06-19 09:40 | PM.PNCARD ---
Progress Note: A&P Assessment and Plan (1) Cardiogenic shock: Code(s): R57.0 - Cardiogenic shock Status: Acute Assessment and Plan: 62-year-old female with recent late presentation [place], status post PCI/JACOBY occluded LCX on 06/02/2023. At that time, patient's LV function was normal. She was discharged home, but returned to the hospital with cough, and worsening shortness of breath. Repeat EKG did not show new ST segment abnormality. However, repeat echocardiogram showed severe LV systolic dysfunction with LVEF 25-30%, moderate MR. Troponins mildly elevated but essentially flat. NT proBNP significantly elevated. -patient intubated for respiratory failure last evening. She is in pulmonary edema and hypotensive requiring pressor support. Unable to tolerate dobutamine yesterday as per ICU staff due to atrial fibrillation. Converted to sinus rhythm with IV amiodarone. I spoke with patient's family at length about further management options which would include relook coronary angiogram to rule out any subacute stent thrombosis and need for mechanical support with Impella in light of patient's cardiogenic shock with MR. Patient's family would prefer patient to be transferred to a tertiary care center. [employer] Coordinator has already initiated the transfer process to [facility] at the time of dictation of this note. Patient's family was given an option of repeat coronary angiogram and mechanical support here at [facility] based on the wait time for the transfer. The verbalized understanding. Continue aspirin, ticagrelor, statin. (2) Ischemic cardiomyopathy: Code(s): I25.5 - Ischemic cardiomyopathy Status: Acute Assessment and Plan: Plan described above. Patient will need relook angiogram and mechanical support. (3) Acute respiratory failure: Code(s): J96.00 - Acute respiratory failure, unspecified whether with hypoxia or hypercapnia Status: Acute Assessment and Plan: Ventilatory management as per critical care team. (4) Coronary artery disease: Code(s): I25.10 - Atherosclerotic heart disease of [place] coronary artery without angina pectoris Status: Acute Plan Aspirin, ticagrelor, statin. Time Spent With Patient Time with patient: Greater than 35 minutes Subjective Date/time seen: 06/19/23 09:40 Interval history: Date of service: 06/19/2023 Interval history: Patient was intubated last evening for respiratory failure. overnight, she was in atrial fibrillation, which converted with amiodarone. He at the time of evaluation, patient was intubated and sedated. Patient's family was in the room. Spoke at length with the patient's family in presence of intensive care physician. Exam Narrative: PHYSICAL EXAMINATION: GENERAL: Sedated, unresponsive, intubated MENTAL STATUS: Unresponsive, sedated EYES: Eyes closed EARS: External ears appear normal NOSE: Normal and patent, no discharge MOUTH: Orotracheal tube is in place NECK: Supple, JVD CHEST: Bilateral vent sounds HEART: Normal rate, regular rhythm, normal S1 and S2, pansystolic murmur left sternal border ABDOMEN: Soft NEUROLOGICAL: Unresponsive, sedated MUSCULOSKELETAL: No major deformity, no amputation EXTREMITIES: No pedal edema SKIN: no rash on the exposed area, no cyanosis PSYCHIATRIC: Sedated, not agitated Objective Data Vital Signs Vital Signs: Vital Signs - 24 hr 06/18/23 10:00 06/18/23 10:00 06/18/23 10:50 Temperature Pulse Rate 114 H 113 H 116 H Respiratory Rate 40 H 38 H Blood Pressure 127/65 Pulse Oximetry 97 98 Oxygen Delivery BiPAP Fraction of Inspired Oxygen 06/18/23 11:28 06/18/23 12:00 06/18/23 12:00 Temperature 37.9 C H Pulse Rate 122 H Respiratory Rate 35 H Blood Pressure 98/62 L Pulse Oximetry 94 94 92 Oxygen Delivery BiPAP BiPAP Fraction of Inspired Oxygen 60 60 06/18/23 12:00 06/18/23 13:47 06/18/23 14:00
[2023-06-19 09:56] LABS: Glucose Point of Care 328 mg/dl (65-105)
[2023-06-19 09:57] LABS: Appearance Urine Clear (Clear); Bilirubin Urine Negative (Negative); Blood Urine Trace (Negative); Color Urine Yellow (Yellow); Glucose Urine UA 2+ mg/dL (Negative); Ketones Urine 2+ mg/dL (Negative); Nitrate Urine Negative (Negative); Protein Urine 1+ mg/dL (Negative); Urobilinogen Urine 0.2 mg/dL (<2.0)
[2023-06-19 09:57] LABS: Glucose Point of Care 340 mg/dl (65-105)
[2023-06-19 09:58] LABS: Add Urine Microscopic? YES; Leukocyte Esterase Ur Negative LEU/UL (NEGATIVE); RBC Urine 0-2 /hpf (0-2); Squamous Epithelial Cell Urine Few /hpf (Few); WBC Urine 0-3 /hpf (0-3)
[2023-06-19] MEDS: INSULIN HUMAN REGULAR (*BKC) 100 UNITS in SODIUM CHLORIDE 0.9% IV 99 ML 5.5 UNITS IV CONT (10:41)
[2023-06-19] MEDS: INSULIN HUMAN REGULAR (*BKC) 100 UNITS/ML 8 UNITS IV PUSH (10:41)
[2023-06-19] MEDS: NOREPINEPHRINE 8 MG/D5W 250 ML 8 MG/250 ML BAG 52.5 MG IV CONT (10:55)
[2023-06-19 10:56] LABS: Anion Gap 21 mmol/L (8-16); Blood Urea Nitrogen 32 mg/dL (7-17); Calcium 8.3 mg/dL (8.4-10.2); Carbon Dioxide 17 mmol/L (22-30); Chloride 99 mmol/L (98-107); Estimated CRCL calculation 41 ml/min; Estimated Glomerular Filt Rate 50; Glucose 549 mg/dL (65-110); Potassium 3.4 mmol/L (3.4-5.0); Sodium 137 mmol/L (137-145)
--- NOTE | 2023-06-19 11:38 | WPDINTPN ---
Progress Note: A&P Assessment and Plan (1) Acute hypoxic respiratory failure: Code(s): J96.01 - Acute respiratory failure with hypoxia Status: Acute Assessment and Plan: Acute Respiratory failure secondary to congestive heart failure pulmonary edema and pleural effusion. ? Community-acquired pneumonia although appears unlikely considering history and cardiac echo findings Blood culture sent in the ER. Patient is on empiric Levaquin she is allergic to cephalosporin and vancomycin Patient patient was started on BiPAP with initial improvement and decrease in FiO2 requirement down to 60%. Hope was that she will improve clinically with diuretics and come off of BiPAP. She was feeling better and stated her breathing was better until later in the evening when she tired out and could not keep up. She was intubated at that point ABG and chest x-ray reviewed. FiO2 weaned down to 60% this morning. Peep increased to 10 Continue Bronchodilators p.r.n. May need thoracentesis if the pleural effusion does not with diuresis Chest x-ray 06/19 IMPRESSION: 1. Diffuse lung disease with interval improvement, consistent with pneumonia and/or pulmonary edema. 2. Small left pleural effusion. 3. Enlarged cardiac silhouette, consistent with cardiomegaly and pericardial effusion. Chest CT on presentation 1. Diffuse lung disease, consistent with pulmonary edema versus pneumonia. 2. Moderate-sized right and small left pleural effusions. 3. Moderate-sized pericardial effusion. Influenza RSV and coronavirus PCR negative Urine pneumococcal and Legionella antigen pending (2) Cardiogenic shock: Code(s): R57.0 - Cardiogenic shock Status: Acute Assessment and Plan: 06/18 Patient had recent STEMI and had PCI on 06/02 ? 1. Acute 100% occlusion of proximal LCX s/p successful PCI with placement of JACOBY x 2 in an overlapping fashion in the proximal-mid LCX (extending into OM vessel). 2. Mild disease of LAD and RCA. Diagonal branch disease that is best suited for medical management due to small caliber size. Echo at that time showed EF of 55-60%. mid and basal inferolateral and inferior gardner are hypokinetic. The left ventricular diastolic function is grade I diastolic dysfunction. Right ventricular systolic function is normal. On presentation CT scan showed diffuse lung disease consistent with pulmonary edema, moderate right and small left pleural effusion. Stat echo was performed in the ER Summary ? 1. Moderate left ventricular enlargement with normal wall thickness.? Severe left ventricular dysfunction with severe hypokinesis to akinesis of the mid and distal inferior gardner, and the proximal to mid lateral gardner.? Diastolic dysfunction is present.? Estimated ejection fraction is 25-30%.? Global longitudinal strain was also low at -12%. ? 2. Left atrial chamber dimension is moderately enlarged. ? 3. There is moderate mitral valve regurgitation. ? 4. There is mild to moderate tricuspid valve regurgitation. ? 5. Moderate pulmonary hypertension, estimated pulmonary arterial systolic pressure is 57 mmHg. ? 6. Dilated inferior vena cava with <50% collapse upon inspiration consistent with significantly elevated right atrial pressure, 20 mmHg. ? 7. There is small circumferential pericardial effusion measuring 0.5-1.0 cm in thickness.? There is mild invagination of the right atrium during early diastole and occasionally the right ventricle, but the tricuspid valve and mitral valve in flows do not show any significant variation.? Therefore I doubt there is any tamponade physiology present. ? 8. Normal sinus rhythm. ? 9. Somewhat technically difficult study, IV definity used. ? 10. No extravasation of IV definity into the pericardium, thus, no suggestion of myocardial perforation or rupture Patient was started on colchicine for pericarditis Stent complication deemed to be unlikely as patient denied any chest pain and troponin have a very low elevation and flat curve.
[2023-06-19 12:20] LABS: Glucose Point of Care 293 mg/dl (65-105)
[2023-06-19 12:20] LABS: Glucose Point of Care 323 mg/dl (65-105)
--- NOTE | 2023-06-19 16:58 | PM.TDS ---
Transfer Discharge Sum: Prov Provider Date of admission: 06/17/23 17:30 Primary care physician: Ozzie Prescott MD Admitting clinician: Wendy Green MD Consults: 06/17/23 17:35 Consult to Physician Routine Comment: Consulting Provider: Danny Irizarry Reason for consultation: CHF Has provider been notified: Yes 06/17/23 17:36 Consult to Physician Routine Comment: Consulting Provider: Chava Saab Reason for consultation: CHF Has provider been notified: Yes 06/19/23 08:04 Consult to Dietitian Routine Reason for Consult:: DKA admission DS: Admitting Diagnosis Discharge Date 06/19/23 Admitting Diagnosis Shortness of breath DS: Discharge Diagnosis Discharge Diagnosis (1) Acute hypoxic respiratory failure: Code(s): J96.01 - Acute respiratory failure with hypoxia Status: Acute (2) Cardiogenic shock: Code(s): R57.0 - Cardiogenic shock Status: Acute (3) CHF (congestive heart failure): Code(s): I50.9 - Heart failure, unspecified Status: Acute (4) Pericardial effusion: Code(s): I31.39 - Other pericardial effusion (noninflammatory) Status: Acute (5) Mitral regurgitation: Code(s): I34.0 - Nonrheumatic mitral (valve) insufficiency Status: Acute (6) Uncontrolled diabetes mellitus: Status: Acute (7) DKA (diabetic ketoacidosis): Code(s): E11.10 - Type 2 diabetes mellitus with ketoacidosis without coma Status: Acute (8) Sepsis: Code(s): A41.9 - Sepsis, unspecified organism Status: Acute (9) Atrial fibrillation with RVR: Code(s): I48.91 - Unspecified atrial fibrillation Status: Acute (10) GI bleed: Code(s): K92.2 - Gastrointestinal hemorrhage, unspecified Status: Acute (11) Coronary artery disease: Code(s): I25.10 - Atherosclerotic heart disease of [place] coronary artery without angina pectoris Status: Acute (12) Ischemic cardiomyopathy: Code(s): I25.5 - Ischemic cardiomyopathy Status: Acute (13) Mixed hyperlipidemia: Code(s): E78.2 - Mixed hyperlipidemia Status: Acute (14) Tobacco abuse: Code(s): Z72.0 - Tobacco use Status: Acute Transfer Discharge Sum: Med Medications Active and Home Medications: Home Medications empagliflozin 25 mg tablet (Jardiance) 25 mg PO QAM 07/28/19 [History Confirmed 06/17/23] semaglutide 1 mg/dose (2 mg/1.5 mL) subcutaneous pen injector (Ozempic) 1 mg subcut WEEKLY 07/28/19 [History Confirmed 06/17/23] sertraline 100 mg tablet (Zoloft) 200 mg PO DAILY 07/28/19 [History Confirmed 06/17/23] aspirin 81 mg tablet,delayed release 81 mg PO QAM #90 tabs 06/02/23 [Rx Confirmed 06/17/23] atorvastatin 80 mg tablet 80 mg PO DAILY #90 tabs 06/02/23 [Rx Confirmed 06/17/23] clotrimazole-betamethasone 1 %-0.05 % topical cream 1 applic topical DAILY 06/02/23 [History Confirmed 06/17/23] gabapentin 100 mg capsule 100 mg PO TID 06/02/23 [History Confirmed 06/17/23] omeprazole 40 mg capsule,delayed release 40 mg PO DAILY 06/02/23 [History Confirmed 06/17/23] ticagrelor 90 mg tablet (Brilinta) 90 mg PO Q12HR #180 tabs 06/02/23 [Rx Confirmed 06/17/23] insulin glargine 100 unit/mL (3 mL) subcutaneous pen 10 unit (0.1 mL) subcut HS #15 mL 06/04/23 [Rx Confirmed 06/17/23] metformin 500 mg tablet 250 mg PO BIDWMEAL #30 tabs 06/04/23 [Rx Confirmed 06/17/23] pen needle, diabetic 32 gauge x 5/32 (BD Ultra-Fine Martina Pen Needle) #1 pkg 06/04/23 [Rx Confirmed 06/17/23] Transfer Discharge Sum: Hosp Hospital Course Hospital course: Jenn Ross is a 62yo female with CAD, DM and tobacco abuse who presents to the ED for shortness of breath and found to have CHF. Patient had recent STEMI 06/02 and had PCI with placement of JACOBY x 2 in an overlapping fashion in the proximal-mid LCX. Echo at the time showing EF 55-60% with mid and basal inferolateral and inferior wall hypokinesis and Grade I diastolic dysfuncti
[2023-06-20 18:26] LABS: Pneumococcal Antigen Urine Not Detected (Not Detected)
[2023-06-22 03:21] LABS: Legionella pneumophila Ag Ur Not Detected (Not Detected)
== END 2023-06-19 12:12 | disposition short-term general hospital (02) | DRG 871 ==
LOC: ANHED 14:55 → ANHICU 18:02
PROVIDERS: Emergency Medicine; Internal Medicine; Admitting Provider Internal Medicine; Emergency Provider Emergency Medicine; PCP Family Medicine; Visit Provider Internal Medicine
DX: A41.9 Sepsis, unspecified organism (principal); E11.10 Type 2 diabetes mellitus with ketoacidosis without coma; R57.0 Cardiogenic shock; J96.01 Acute respiratory failure with hypoxia; J18.9 Pneumonia, unspecified organism; I50.31 Acute diastolic (congestive) heart failure; I21.3 ST elevation (STEMI) myocardial infarction of unspecified site; K92.2 Gastrointestinal hemorrhage, unspecified; I31.39 Other pericardial effusion (noninflammatory); I31.9 Disease of pericardium, unspecified; I48.91 Unspecified atrial fibrillation; I25.10 Atherosclerotic heart disease of native coronary artery without angina pectoris; Z20.822 Contact with and (suspected) exposure to COVID-19; I34.0 Nonrheumatic mitral (valve) insufficiency; I25.5 Ischemic cardiomyopathy; E78.2 Mixed hyperlipidemia; K21.9 Gastro-esophageal reflux disease without esophagitis; E11.42 Type 2 diabetes mellitus with diabetic polyneuropathy; M19.90 Unspecified osteoarthritis, unspecified site; Z85.3 Personal history of malignant neoplasm of breast; Z95.5 Presence of coronary angioplasty implant and graft; Z90.49 Acquired absence of other specified parts of digestive tract; Z87.891 Personal history of nicotine dependence
CPT/HCPCS: 36415; 36569; 36600; 71045; 71250; 74018; 80048; 80053; 81001; 82375; 82550; 82805; 82948; 83050; 83605; 83735; 83880; 84100; 84145; 84484; 85025; 85610; 85730; 87040; 87449; 87637; 87641; 87899; 93005; 94002; 94003; 96365; 96375; 99291; A9270; C8929; C9113; J0282; J0330; J0613; J1250; J1650; J1815; J1940; J1956; J2250; J2371; J2704; J3010; J3370; J3480; J7120; Q9957

== ENCOUNTER 2023-07-28 21:09 | Inpatient (IN) | payer BC, SELFPAY ==
--- NOTE | ~2023-07-28 | XR_ITS ---
EXAMINATION: XR chest 1V portable DATE: 07/28/2023 21:31 INDICATION: Shortness of breath. TECHNIQUE: A single frontal view of the chest was obtained. COMPARISON: Chest single view 06/19/2023, chest CT 06/17/2023 FINDINGS: There are moderate-sized right and small pleural effusions. There are airspace opacities in the mid and lower lung zones. No pneumothorax. There is enlargement of the cardiac silhouette. IMPRESSION: 1. Airspace opacities in the mid and lower lung zones, consistent with atelectasis and pulmonary haider a versus pneumonia. 2. Moderate-sized right and small left pleural effusions. 3. Enlargement of the cardiac silhouette which may be secondary to pericardial effusion as seen on th e prior CT. Reviewed, dictated and finalized at location E. RNET SALES REPRESENTATIVE IMPRESSION: 1. Airspace opacities in the mid and lower lung zones, consistent with atelecta sis and pulmonary edema versus pneumonia. 2. Moderate-sized right and small left pleural effusions. 3. Enlargement of the cardiac silhouette which may be secondary to pericardial effusion as seen on the prior CT.
--- NOTE | ~2023-07-28 | CT_ITS ---
EXAMINATION: CTA chest PE protocol DATE: 07/28/2023 23:17 INDICATION: Dyspnea. TECHNIQUE: Computed tomography angiography (CTA) of the chest was performed with 100 mL Omnipaque-350 intravenous contrast timed to evaluate the pulmonary arteries. Coronal maximum intensity projection 3D-reconstructions were created by the technologist. Automated exposure control and iterative reconst ruction technique were employed. The dose-length product was 396.22 mGy-cm. COMPARISON: Chest CT 06/17/23 FINDINGS: There is diffuse smooth septal thickening in the lungs. There are scattered groundglass opa cities in the lungs. There is dependent atelectasis bilaterally. There are moderate-sized pleural eff usions. Cardiomegaly is noted. There is a small pericardial effusion. There are coronary artery calci fications. There is no pulmonary embolus. There is mild chronic height loss of multiple vertebral bod ies. There is moderate thoracic spondylosis. IMPRESSION: 1. No pulmonary embolus. 2. Moderate pulmonary edema. 3. Moderate-sized pleural effusions. 4. Small pericardial effusion. Reviewed, dictated and finalized at location E. UNICATION SKILLS INSTRUCTOR
[2023-07-28 21:04] VITALS: BP 93/61; PULSE 115; RESP 20; O2SAT 95
--- NOTE | 2023-07-28 21:11 | ECG_ITS ---
Measurements Intervals [place] Rate: 119 P: 68 IN: 160 QRS: -36 QRSD: 94 T: 180 QT: 339 QTc: 478 Interpretive Statements SINUS TACHYCARDIA LEFT AXIS DEVIATION LOW QRS VOLTAGE IN LIMB LEADS ST-T WAVE ABNORMALITY IN ANTEROLATERAL LEADS- CONSIDER ISCHEMIA BASELINE ARTIFACT- I, AVR, V1-V2 ABNORMAL ECG COMPARED TO ECG 06/18/2023 23:33:56 SIN[address] T[address]YCARDIA NOW PRESENT ST-T WAVE ABNORMALITY NOW PRESENT Electronically Signed On 07-29-2023 6:25:54 COMMERCIAL PROPERTY ADMINISTRATOR by Abebe Zamudio D.O.
[2023-07-28 21:17] VITALS: O2SAT 96
[2023-07-28 21:32] LABS: Basophils Percent Auto 0.3 % (0.2-1.2); Hemoglobin 8.6 g/dL (12.0-15.0); Immature Granulocyte Absolute 0.09 K/mm3 (0.00-0.031); Immature Granulocyte Percent A 0.6 % (0-0.5); Lymphocytes Absolute Auto 1.02 K/mm3 (0.9-3.2); Lymphocytes Percent Auto 6.9 % (18.3-44.2); Mean Corpuscular HGB Conc 29.7 g/dl (32-36); Mean Corpuscular Hemoglobin 24.9 pg (26-34); Mean Corpuscular Volume 84.1 fl (80-100); Mean Platelet Volume 9.1 fl (7.4-10.4); Monocytes Absolute Auto 1.1 K/mm3 (0.1-0.6); Monocytes Percent Auto 7.2 % (2.6-8.5); Neutrophils Absolute Auto 12.6 K/mm3 (1.3-6.7); Platelet Count Result 407 k/mm3 (150-375); Red Blood Count 3.45 M/mm3 (4.2-5.4); Red Cell Distribution Width 16.8 % (11.5-14.5); White Blood Count 14.8 K/mm3 (4.5-10.0)
[2023-07-28 21:43] LABS: Alanine Aminotransferase 30 U/L (6-35); Alkaline Phosphatase 196 U/L (38-126); Anion Gap 8 mmol/L (8-16); Aspartate Amino Transferase 42 U/L (14-36); Bilirubin,Total 0.6 mg/dL (0.2-1.3); Blood Urea Nitrogen 24 mg/dL (7-17); Calcium 8.4 mg/dL (8.4-10.2); Carbon Dioxide 21 mmol/L (22-30); Chloride 104 mmol/L (98-107); Estimated CRCL calculation 85 ml/min; Estimated Glomerular Filt Rate > 60; Glucose 86 mg/dL (65-110); Potassium 3.6 mmol/L (3.4-5.0); Sodium 133 mmol/L (137-145)
[2023-07-28 21:45] LABS: Hypochromasia 1+ (NORMAL); Platelet Estimate Increased (Adequate); Schistocytes None Seen (NORMAL)
[2023-07-28 21:46] LABS: Anisocytosis 2+ (NORMAL)
[2023-07-28 22:08] LABS: Influenza A QL RT-PCR Negative (Negative); Influenza B QL RT-PCR Negative (Negative); RSV RNA, RT-PCR Negative (Negative); SARS-CoV-2 RNA PCR Negative (Negative)
--- NOTE | 2023-07-28 22:12 | ED.SOB ---
HPI - SOB/Dyspnea General Chief Complaint: Shortness of Breath/Dyspnea Stated Complaint: sob Time Seen by Provider: 07/28/23 21:51 Source: patient and family Limitations: no limitations History of Present Illness HPI Narrative: Patient is a 62-year-old female presents to the emergency department complaining of shortness of breath. Patient states throughout the day today she had a progressively getting more short of breath. Patient denies any chest pain. Patient denies any recent illness, recent injuries, history of blood clots, melena, hematochezia, vomiting, diarrhea, numbness, weakness, unilateral lower extremity swelling, orthopnea, history of heart failure, recent echocardiograms. Patient admits to a history of a ST elevation myocardial infarction in May of 2023 and is yet to follow-up with a organic chemistry teacher but has an upcoming appointment with a [place] physician and has had swelling in her legs approximately 2 to 3+ pitting edema since being discharged from the hospital. 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 Patient denies fever, sick contacts, nasal congestion. Patient admits to being a former smoker but denies history of COPD. Patient admits to a mild intermittent cough with minimal to no sputum production. Related Data Home Medications Medication Instructions Recorded Confirmed empagliflozin 25 mg tablet 25 mg PO QAM 07/28/19 07/29/23 (Jardiance) sertraline 100 mg tablet (Zoloft) 200 mg PO DAILY 07/28/19 07/29/23 omeprazole 40 mg capsule,delayed 40 mg PO DAILY 06/02/23 07/29/23 release aripiprazole 5 mg tablet 5 mg PO DAILY 07/26/23 07/29/23 furosemide 20 mg tablet 20 mg PO QAM 07/26/23 07/29/23 tramadol 50 mg tablet 50 mg PO Q6H PRN Pain 07/26/23 07/29/23 atorvastatin 20 mg tablet 20 mg PO HS 07/29/23 07/29/23 Allergies Allergy/AdvReac Type Severity Reaction Status Date / Time ceftriaxone Allergy Unknown Itching Verified 07/28/23 21:18 clarithromycin Allergy Unknown Itching Verified 07/28/23 21:18 Review of Systems Review of Systems: A 10 system review of systems was completed on the patient and is negative except for what is stated in the HPI. Nursing and ancillary documentation was reviewed. [facility] Past Medical History Medical History (Updated 07/29/23 @ 01:01 by Jacinto Ibrahim DO) Breast cancer Lumpectomy x3. Treated with XRT and Tamoxifen x 5 yrs Coronary artery disease STEMI 06/02/23 with PCI/JACOBY x2 to the LCX Diabetes mellitus Diabetic neuropathy Gangrene of toe of left foot GERD (gastroesophageal reflux disease) Mixed hyperlipidemia Osteoarthritis Recurrent major depression resistant to treatment Right carotid bruit Sacral decubitus ulcer Surgical History Surgical History H/O thumb surgery S/P breast lumpectomy S/P cholecystectomy Family History Family History Mother Family history of thyroid disease COPD (chronic obstructive pulmonary disease) Oxygen dependent Atrial fibrillation Grandparent Family history of malignant neoplasm of breast Hypertension Colon cancer Father Family history of diabetes mellitus in first degree relative CHF (congestive heart failure) Diabetes mellitus Other Family history of malignant neoplasm of ovary Family history of malignant neoplasm of brain Sibling Diabetes mellitus Hypothyroid Social History Social History (Updated 07/26/23 @ 16:43 by AFUA Ramirez) Social History: Patient has quit smoking. She denies drug use. Rare alcohol use. She is a full code. She nominates her son to be the individual would make medical decisions for her if she is unable. Smoking packs per day: 0.5 Smoking cigarettes per day: 10.0 Years smoked: 38 Smoking pack-years: 19.00 Smoking status: Former smoker Tobacco type: cigarettes Second hand tobacco smoke exposure: Yes (Childhood exposure/ smoking in home.) Smoking e
[2023-07-28 22:19] LABS: CRP 8.6 mg/dL (<1.0); Magnesium 2.2 mg/dL (1.6-2.3)
[2023-07-28 22:21] LABS: INR 1.1; Prothrombin Time 14.7 Seconds (11.1-14.7)
[2023-07-28 22:29] LABS: NT Pro B Type Natriuretic Pept 14400 pg/mL (19.9-100); Troponin I 0.363 ng/mL (0.000-0.034)
[2023-07-28 22:36] LABS: Base Excess ABG -0.5 mEq/l (+/-2.0); Fractional Inspired Oxygen 40 %; HCO3 ABG 22.9 mEq/l (22.0-26.0); Oxygen Content ABG 10.9 %vol (16.0-22.0); PO2 FiO2 Ratio Arterial Blood 1.11 %; Total Hemoglobin 9.8 g/dL (12.0-18.0); pH ABG 7.459 (7.350-7.450)
--- NOTE | 2023-07-28 22:40 | PC.NURSE ---
This RN placed pt on NRB due to continuous low saturations. Pt was satting 87% on 7L NC. Pt satting 97% on NRB at this time. EDP Dr. Ibrahim made aware of pt condition.
[2023-07-28 22:41] LABS: Lactic Acid Reflex 0.9 mmol/L (0.7-2.0)
--- NOTE | 2023-07-28 22:45 | PC.NURSE ---
EDP Dr. Ibrahim at bedside. NS bolus infusing at this time.
[2023-07-28 22:47] LABS: Oxygen Saturation ABG 96.5 % (95.0-100.0); Oxyhemoglobin 94.3 % THb (90.0-100.0); PO2 ABG 80.1 mmHg (80.0-100.0)
[2023-07-28 22:48] VITALS: O2SAT 95
[2023-07-28 22:49] LABS: Device NON-REBREATHER MASK; Modified Allen's Test Pass; Site Drawn RIGHT BRACHIAL
[2023-07-28] MEDS: SODIUM CHLORIDE 0.9% IV 1,000 ML 999 ML IV CONT (22:54)
--- NOTE | 2023-07-28 23:00 | PC.NURSE ---
Pt to CT at this time on monitor and 97% on NRB at 15L.
[2023-07-28 23:26] VITALS: BP 86/50; PULSE 115; RESP 17; O2SAT 96
--- NOTE | 2023-07-28 23:30 | PC.NURSE ---
This RN spoke to [place] xfr line at this time to give information on pt regarding xfr. Pt admitted to CCU at [facility]. Awaiting bed assignment.
[2023-07-28] MEDS: levoFLOXacin 750 MG/D5W 150 ML 750 MG/150 ML BAG 100 MG IVPB (23:53)
[2023-07-28] MEDS: VANCOMYCIN 1,500 MG/NS 500 ML 1,500 MG/500 ML BAG 250 MG IVPB (23:54)
[2023-07-29] VITALS (19 sets, daily range): BP systolic 80–126; BP diastolic 59–78; PULSE 101–120; RESP 19–33; TEMP 36.9–38.3; O2SAT 60–100; BMI 23.6
[2023-07-29 00:25] LABS: Appearance Urine Turbid (Clear); Bacteria Urine 4+ /hpf; Bilirubin Urine Negative (Negative); Blood Urine 2+ (Negative); Color Urine Dark Yellow (Yellow); Glucose Urine UA 2+ mg/dL (Negative); Ketones Urine Trace mg/dL (Negative); Leukocyte Esterase Ur 2+ LEU/UL (Negative); Need Manual Microscopic Reviewed; Nitrate Urine Negative (Negative); Non Pathogenic Casts >20; Protein Urine 2+ mg/dL (Negative); Specific Grav Ur 1.049 (1.001-1.035); Squamous Epithelial Cell Urine Few /hpf (Few); WBC Clumps Urine Present /HPF; WBC Urine >100 /hpf; pH Urine 5.5 (5.0-9.0)
[2023-07-29 00:26] LABS: Add Urine Microscopic? YES
[2023-07-29 01:09] LABS: MRSA (PCR) NOT DETECTED (NOT DETECTE)
[2023-07-29 01:16] LABS: Troponin I 0.649 ng/mL (0.000-0.034)
--- NOTE | 2023-07-29 01:33 | PC.NURSE ---
Pt called out for c/o increased SOB. Pt is currently on NRB at 15L. EDP Dr. Ibrahim made aware. No additional orders at this time. Pt satting 96%.
[2023-07-29] MEDS: FUROSEMIDE INJ 40 MG/4 ML VIAL 60 MG IV PUSH (01:42)
--- NOTE | 2023-07-29 01:50 | ECG_ITS ---
Measurements Intervals [place] Rate: 116 P: 32 NM: 128 QRS: -43 QRSD: 101 T: 105 QT: 341 QTc: 475 Interpretive Statements SINUS TACHYCARDIA LEFT AXIS DEVIATION LOW VOLTAGE IN LIMB LEADS BORDERLINE ST-T WAVE ABNORMALITY- LAT/HIGH LAT LEADS ABNORMAL ECG COMPARED TO ECG 07/28/2023 21:11:24 ST-T WAVE ABNORMALITY IMPROVED Electronically Signed On 07-29-2023 6:33:39 CAMERA ASSEMBLER by Abebe Zamudio D.O.
--- NOTE | 2023-07-29 02:10 | PC.NURSE ---
This RN called report to JEROMY Viveros in ICU at this time. RN requested we hold pt in ED until she speaks to hospitalist. Pt to go up after RN calls back.
--- NOTE | 2023-07-29 03:23 | ADMGEN ---
This patient, Jenn Ross, was admitted to Intensive Care Unit-10. Patient/family oriented to hospital policies and general routines including ID bracelet, bed and alarms, visiting hours, pain management, procedures, bathroom and other care routines, personal items, smoking policy, room service/diet, and visiting hours. Information on how to activate the Rapid Response Team has been discussed. Patient/Family are encouraged to report perceived risks to care and to ask questions if they do not understand what they are told or what they should do.
[2023-07-29 04:53] LABS: Alveolar/Arterial O2 Gradient 312.7 mmHg; Base Excess ABG -5.5 mEq/l (+/-2.0); Carboxyhemoglobin 0.3 % THb (0-2.0); Fractional Inspired Oxygen 60 %; HCO3 ABG 18.7 mEq/l (22.0-26.0); Methemoglobin ABG 0.2 %THb (0-1.5); Oxygen Content ABG 14.3 %vol (16.0-22.0); Oxygen Saturation ABG 95.8 % (95.0-100.0); Oxyhemoglobin 93.8 % THb (90.0-100.0); PCO2 ABG 31.9 mmHg (35.0-45.0); PO2 FiO2 Ratio Arterial Blood 1.33 %; Reduced Hemoglobin 5.7 %THb (0-5.0); Total Hemoglobin 10.8 g/dL (12.0-18.0); pH ABG 7.385 (7.350-7.450)
[2023-07-29 04:54] LABS: Device BIPAP; Modified Allen's Test Pass; Site Drawn RIGHT BRACHIAL
[2023-07-29 04:55] LABS: Inspiratory Pressure 12 cmH2O
[2023-07-29 04:57] LABS: Expiratory Pressure 6 cmH2O
[2023-07-29 05:17] LABS: Estimated CRCL calculation 72 ml/min; Estimated Glomerular Filt Rate > 60
[2023-07-29] MEDS: MORPHINE SULFATE (*CRX) 2 MG/ML INJ 1 MG IV PUSH (06:54)
[2023-07-29] MEDS: ACETAMINOPHEN 650 MG SUPPOSITORY RECTAL (07:26)
--- NOTE | 2023-07-29 07:46 | WPDCNINT ---
Assessment and Plan Assessment and plan (1) Acute hypoxic respiratory failure: Code(s): J96.01 - Acute respiratory failure with hypoxia Status: Acute Assessment and Plan: Acute hypoxic respiratory failure secondary to pulmonary edema congestive heart failure Echo 07/03 showed EF of 25-30% with severe hypokinesis to akinesis of mid and distal anterior gardner CTA on presentation IMPRESSION: 1. No pulmonary embolus. 2. Moderate pulmonary edema. 3. Moderate-sized pleural effusions. 4. Small pericardial effusion. [id number] Clinical presentation consistent with congestive heart failure pulmonary edema and pleural effusions kidney acute hypoxic respiratory failure although pneumonia cannot be completely ruled out at this time Blood and urine cultures have been sent. Patient was given empiric vancomycin and Levaquin Patient blood pressure is at this time borderline hence was not given a dose of diuretics She is on BiPAP at 70% FiO2 and saturating well at 99%. Continue NIPPV support Patient has been accepted at [facility] where she received her care on last admission upon transfer from [facility]. Patient will be going with the next hour. Will continue monitoring and critical care support while patient is here in the ICU. Until patient is transferred. (2) Sepsis: Qualifiers: Acute respiratory failure type: with hypoxia Sepsis acute organ dysfunction status: with acute organ dysfunction Sepsis type: sepsis due to unspecified organism Severe sepsis acute organ dysfunction type: acute respiratory failure Severe sepsis shock status: unspecified Qualified Code(s): A41.9 - Sepsis, unspecified organism; R65.20 - Severe sepsis without septic shock; J96.01 - Acute respiratory failure with hypoxia Code(s): A41.9 - Sepsis, unspecified organism Status: Acute Assessment and Plan: Patient met criteria for sepsis although her lactic acid level was normal She does have evidence of UTI on a UA Although her respiratory failure is likely secondary to congestive heart failure the pneumonia cannot be completely ruled out She is on empiric vancomycin and Levaquin Cultures have been sent and are pending (3) CHF (congestive heart failure): Code(s): I50.9 - Heart failure, unspecified Status: Acute Assessment and Plan: See above (4) UTI (urinary tract infection): Qualifiers: Hematuria presence: with hematuria Urinary tract infection type: site unspecified Qualified Code(s): N39.0 - Urinary tract infection, site not specified; R31.9 - Hematuria, unspecified Code(s): N39.0 - Urinary tract infection, site not specified Status: Acute Assessment and Plan: UA suggestive of UTI blood and urine cultures are pending Patient was started on Levaquin in the ER which should provide coverage for UTI. Since patient is being transferred to tertiary facility I will not make any further change at this time (5) Coronary artery disease: Qualifiers: Associated angina: without angina Coronary Disease-Associated Artery/Lesion type: [place] artery [place] vs. transplanted heart: [place] heart Qualified Code(s): I25.10 - Atherosclerotic heart disease of [place] coronary artery without angina pectoris Code(s): I25.10 - Atherosclerotic heart disease of [place] coronary artery without angina pectoris Status: Acute Assessment and Plan: Recent sTEMI 06/02 and had PCI with placement of JACOBY x 2 in an overlapping fashion in the proximal-mid LCX which was followed by pericarditis and pericardial effusion requiring pericardial window Troponin is elevated but EKG reviewed Continue aspirin Brilinta and statin Patient not on beta-javi Chas due to low blood pressure baseline (6) Pulmonary edema: Qualifiers: Chronicity: acute Qualified Code(s): J81.0 - Acute pulmonary edema Code(s): J81.1 - Chronic pulmonary edema Status: Acute Assessm
[2023-07-29 08:14] LABS: Glucose Point of Care 160 mg/dl (65-105)
--- NOTE | 2023-07-29 08:23 | PM.SD2 ---
Same Day Admit/Disch: HPI History of Present Illness Chief complaint: Sepsis Narrative: 62yo female with CAD, DM and tobacco abuse who presents to the ED for shortness of breath. Patient had recent STEMI 06/02/23 and had PCI with placement of JACOBY x 2 in an overlapping fashion in the proximal-mid LCX. Echo at the time showing EF 55-60% with mid and basal inferolateral and inferior wall hypokinesis and Grade I diastolic dysfunction. She returned to the ED on 06/17/24 for shortness of breath and found to have acute hypoxic respiratory failure secondary to CHF with pulmonary edema, pleural effusion and moderate sized pericardial effusion. Echo showed moderate LV enlargement with normal wall thickness, severe LV dysfunction and severe hypokinesis to akinesis of the mid and distal inferior gardner and proximal to mid lateral gardner.? She has diastolic dysfunction.? EF is 25-30%. There is moderate MR and moderate pulmonary hypertension.? [id number] TR and significant elevation of the right atrial pressure. Patient was intubated and started on pressors. She went into AFib overnight but converted with Amiodarone. She was transferred to tertiary care hospital on 06/19/23 given concern for tamponade. At the OSH, she underwent a pericardial window and required distributive shock requiring 5 pressors and intra-aortic balloon pump. She was extubated 06/27. She was discharged to rehab on 07/07. She has been home for about 1 week. She presents again with complaints of shortness of breath. She denies chest pain, nausea, vomiting, abd pain, diarrhea, dysuria or hematuira. She is having fevers and cough. no sick contacts. She has pedal edema but no calf pain. She has not smoked since discharge. In the ED, she was HoTN with BP 88/48 and tachycardic at 115. On 4L at 95%. Afebrile initially but has developed fevers since admission. EKG showing sinus tachycardia, borderline ST-T wave changes. CTA chest showing no PE, moderate pulmonary edema, moderate pleural effusions and small pericardial effusion. Influenza, RSV and COVID PCR negative. ABG 7.46/33/80 on 15L NRB mask. WBC 14.8K, Hgb 8.6, BNP 14K and elevated Trop to 0.65. UA consistent with UTI. She was given IV fluids, levaquin, vancomycin and Lasix IV. She was admitted to the ICU on bipap. [facility] Past Medical History Medical History Breast cancer Lumpectomy x3. Treated with XRT and Tamoxifen x 5 yrs Coronary artery disease STEMI 06/02/23 with PCI/JACOBY x2 to the LCX Diabetes mellitus Diabetic neuropathy Gangrene of toe of left foot GERD (gastroesophageal reflux disease) Mixed hyperlipidemia Osteoarthritis Recurrent major depression resistant to treatment Right carotid bruit Sacral decubitus ulcer Surgical History Surgical History H/O thumb surgery S/P breast lumpectomy S/P cholecystectomy Family History Family History Mother Family history of thyroid disease COPD (chronic obstructive pulmonary disease) Oxygen dependent Atrial fibrillation Grandparent Family history of malignant neoplasm of breast Hypertension Colon cancer Father Family history of diabetes mellitus in first degree relative CHF (congestive heart failure) Diabetes mellitus Other Family history of malignant neoplasm of ovary Family history of malignant neoplasm of brain Sibling Diabetes mellitus Hypothyroid Social History Social History Social History: Patient has quit smoking. She denies drug use. Rare alcohol use. She is a full code. She nominates her son to be the individual would make medical decisions for her if she is unable. Smoking packs per day: 0.5 Smoking cigarettes per day: 10.0 Years smoked: 38 Smoking pack-years: 19.00 Smoking status: Former smoker Tobacco type: cigarettes Se
[2023-07-29] MEDS: TICAGRELOR 90 MG TABLET PO (09:16)
[2023-07-29] MEDS: SERTRALINE HCL 50 MG TABLET 200 MG PO (09:16)
[2023-07-29] MEDS: ENOXAPARIN 40 MG/0.4 ML SYRINGE SUB-Q (09:16)
[2023-07-29] MEDS: ASPIRIN 81 MG ENTERIC TABLET PO (09:17)
[2023-07-29] MEDS: PANTOPRAZOLE SODIUM IV 40 MG VIAL IV PUSH (09:17)
[2023-07-29] MEDS: VANCOMYCIN 1,250 MG/NS 250 ML 1,250 MG/250 ML BAG 166.67 MG IVPB (11:19)
[2023-07-29 11:32] LABS: Glucose Point of Care 151 mg/dl (65-105)
--- NOTE | 2023-07-30 07:20 | P.CDI_ITS ---
CDI Query Clarification Request CHF noted in the assessment and plan. Documented history of CHF. Elevated BNP on 07/28/23 blood work. 07/28/23 Chest xray notes pulmonary edema. Patient presented with shortness of breath, LE edema, and orthopnea. Lasix listed as a home medication. 07/03 Echo noted EF 25-30% per documentation. Please specify type and acuity of heart failure if known. * Acute * Chronic * Acute on Chronic * Unknown * Systolic * Diastolic * Combined Systolic and Diastolic * Unknown
== END 2023-07-29 13:45 | disposition short-term general hospital (02) | DRG 871 ==
LOC: ANHED 07-29 00:58 → ANHICU 07-29 01:52
PROVIDERS: Admitting Provider Internal Medicine; Emergency Provider Student in an Organized Health Care Education/Training Program; PCP Family Medicine; Visit Provider Internal Medicine
DX: A41.9 Sepsis, unspecified organism (principal); J96.01 Acute respiratory failure with hypoxia; J81.1 Chronic pulmonary edema; N39.0 Urinary tract infection, site not specified; B96.20 Unspecified Escherichia coli [E. coli] as the cause of diseases classified elsewhere; R65.20 Severe sepsis without septic shock; R31.9 Hematuria, unspecified; E11.65 Type 2 diabetes mellitus with hyperglycemia; E11.42 Type 2 diabetes mellitus with diabetic polyneuropathy; E78.2 Mixed hyperlipidemia; F32.A Depression, unspecified; I50.9 Heart failure, unspecified; I25.2 Old myocardial infarction; I25.10 Atherosclerotic heart disease of native coronary artery without angina pectoris; K21.9 Gastro-esophageal reflux disease without esophagitis; M19.90 Unspecified osteoarthritis, unspecified site; Z95.5 Presence of coronary angioplasty implant and graft; Z20.822 Contact with and (suspected) exposure to COVID-19; Z79.82 Long term (current) use of aspirin; Z79.4 Long term (current) use of insulin; Z79.02 Long term (current) use of antithrombotics/antiplatelets; Z85.3 Personal history of malignant neoplasm of breast; Z90.49 Acquired absence of other specified parts of digestive tract; Z87.891 Personal history of nicotine dependence
CPT/HCPCS: 36415; 36600; 71045; 71275; 80053; 81001; 82375; 82565; 82805; 82948; 83050; 83605; 83735; 83880; 84443; 84484; 85025; 85610; 85730; 86140; 87040; 87077; 87086; 87088; 87186; 87637; 87641; 93005; 94002; 96361; 96365; 99285; A9270; C1751; C9113; J1650; J1940; J1956; J2270; J3370; J7030; Q9967